=== PATIENT | female | born 1975 | race Caucasian/White ===

== ENCOUNTER 2017-04-27 19:47 | Observation (INO) | payer OTHER ==
[~2017-04-27] VITALS: Ht 165.1 cm; Wt 77.0 kg
[2017-04-27 19:54] VITALS: BP 143/90; PULSE 86; RESP 16; TEMP 98.7; O2SAT 98
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
[2017-04-27 20:13] LABS: AUTOMATED NEUTROPHIL # 13.4 TH/MM3 (1.8-7.7); BASOPHIL # 0.1 TH/MM3 (0-0.2); BASOPHIL % 0.6 % (0.0-2.0); EOSINOPHIL % 0.3 % (0.0-4.0); HEMATOCRIT 39.8 % (35.0-46.0); HEMO FLAGS DIFF FINAL; LYMPH % 13.5 % (9.0-44.0); LYMPHOCYTE # 2.2 TH/MM3 (1.0-4.8); MEAN CELL VOLUME 88.4 FL (80.0-100.0); MEAN CORPUSCULAR HEMOGLOBIN 29.2 PG (27.0-34.0); MEAN CORPUSCULAR HGB CONC 33.1 % (32.0-36.0); MONO % 4.4 % (0.0-8.0); NEUT % 81.2 % (16.0-70.0); PLATELET COUNT 334 TH/MM3 (150-450); RED BLOOD COUNT 4.51 MIL/MM3 (4.00-5.30); RED CELL DISTRIBUTION WIDTH 14.1 % (11.6-17.2); WHITE BLOOD COUNT 16.6 TH/MM3 (4.0-11.0)
[2017-04-27 20:25] LABS: APTT (PATIENT) 31.7 SEC (24.3-30.1); PROTHROMBIN TIME - PATIENT 10.5 SEC (9.8-11.6)
[2017-04-27 20:28] VITALS: RESP 16; O2SAT 97
[2017-04-27 20:33] LABS: BLOOD, URINE NEG (NEG); COMMENT (UR) CATH-CULT NOT IND; CULTURE IF INDICATED CATH CULTURE NOT IND; GLUCOSE,URINE NEG (NEG); HYALINE CAST, URINE 1 /lpf (RARE); KETONE, URINE 40 mg/dL (NEG); MUCUS URINE FEW /lpf (OCC); NITRITE,URINE NEG (NEG); PH, URINE 6.5 (5.0-8.5); SQUAMOUS EPITHELIAL CELL URINE <1 /hpf (0-5); TRANSITIONAL EPI CELLS, URINE <1 /hpf; URINE COLOR YELLOW (YELLW/STRAW)
[2017-04-27 20:45] LABS: ANION GAP 12 MEQ/L (5-15); AST (GOT) 16 U/L (15-37); BICARBONATE 20.8 MEQ/L (21.0-32.0); BLOOD UREA NITROGEN 19 MG/DL (7-18); CHLORIDE 103 MEQ/L (98-107); GLOMERULAR FILTRATION RATE 79 ML/MIN (>89); SODIUM (NA) 136 MEQ/L (136-145)
[2017-04-27 20:46] LABS: ALCOHOL LESS THAN 3 MG/DL (0-5); ALT (GPT) 21 U/L (10-53)
[2017-04-27 20:50] LABS: ALKALINE PHOSPHATASE 97 U/L (45-117); CREATINE KINASE 344 U/L (26-192); TOTAL BILIRUBIN ADULT 1.3 MG/DL (0.2-1.0)
[2017-04-27 20:58] VITALS: BP 124/74; PULSE 73; RESP 17; O2SAT 98
[2017-04-27 21:02] LABS: CKMB 5.5 NG/ML (0.5-3.6)
--- NOTE | 2017-04-27 21:03 | RADRPT ---
EXAM DATE/TIME: 04/27/2017 20:25 [facility] COMPARISON: No previous studies available for comparison. INDICATIONS : Shortness of breath. MEDICAL HISTORY : None. SURGICAL HISTORY : None. ENCOUNTER: Initial ACUITY: 1 day PAIN SCORE: 0/10 LOCATION: Bilateral chest FINDINGS: A single view of the chest demonstrates the lungs to be symmetrically aerated without evidence of mas s, infiltrate or effusion. Bibasilar atelectasis. The cardiomediastinal contours are unremarkable. O sseous structures are intact. CONCLUSION: 1. Basilar atelectasis. No effusion. No pneumothorax. Yusef Gibbons MD on April 27, 2017 at 21:00 Board Certified Radiologist. This report was verified electronically.
[2017-04-27 21:06] LABS: ACETAMINOPHEN LESS THAN 2.0 MCG/ML (10.0-30.0)
[2017-04-27] MEDS ORDERED: POTASSIUM CHLOR 20 MEQ PREMIX 100 ML IV ONE (21:30)
[2017-04-27] MEDS ORDERED: VANCOMYCIN INJ 1,000 MG in SODIUM CHLOR 0.9% 250 ML INJ 250 ML IV ONE (21:30)
[2017-04-27] MEDS ORDERED: SODIUM CHLOR 0.9% 1000 ML INJ 1,000 ML IV ONE (21:30)
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
[2017-04-27 22:49] VITALS: BP 126/75; PULSE 75; RESP 16; TEMP 98.2; O2SAT 99
[2017-04-27] MEDS ORDERED: SODIUM CHLOR 0.9% 1000 ML INJ 1,000 ML IV SCH (23:22)
[2017-04-27] MEDS ORDERED: SENNOSIDES 8.6 MG TAB PO PRN (23:30)
[2017-04-27] MEDS ORDERED: Vancomycin Consult Pharmacy 1 EA OTHER SCH (23:30)
[2017-04-27] MEDS ORDERED: MAGNESIUM HYDROXIDE SUSP 30 ML CUP PO PRN (23:30)
[2017-04-27] MEDS ORDERED: ACETAMINOPHEN 325 MG TAB PO PRN (23:30)
[2017-04-27] MEDS ORDERED: ONDANSETRON HCL 4 MG/2 ML VIAL IVP PRN (23:30)
[2017-04-27] MEDS ORDERED: SODIUM CHLORIDE 0.9% FLUSH 10 ML FLUSH IV FLUSH PRN (23:30)
[2017-04-27] MEDS ORDERED: NALOXONE HCL 0.4 MG/ML AMP IV PRN (23:30)
[2017-04-27] MEDS ORDERED: VANCOMYCIN INJ 1,000 MG in SODIUM CHLOR 0.9% 250 ML INJ 250 ML IV SCH (23:30)
[2017-04-27] MEDS ORDERED: BISACODYL 10 MG SUPP RECTAL PRN (23:30)
[2017-04-27] MEDS ORDERED: LACTULOSE SYRUP 20 GM/30 ML CUP PO PRN (23:30)
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
[2017-04-27] MEDS: ENOXAPARIN SODIUM 40 MG/0.4 ML SYRINGE SQ SCH (23:40)
[2017-04-27 23:42] LABS: SEMEN WET PREP WBC 0-2 /HPF; WET PREP SPERM NONE SEEN /HPF
[2017-04-27] MEDS: PIPERACIL-TAZO 4.5 GM PREMIX 100 ML IV SCH (23:42)
[2017-04-28] VITALS (9 sets, daily range): BP systolic 116–145; BP diastolic 67–87; PULSE 58–69; RESP 16–20; TEMP 97.7–98.5; O2SAT 96–100
--- NOTE | 2017-04-28 00:41 | RADRPT ---
EXAM DATE/TIME: 04/28/2017 00:03 [facility] COMPARISON: No previous studies available for comparison. INDICATIONS : Distention. MEDICAL HISTORY : None. SURGICAL HISTORY : None. ENCOUNTER: Initial ACUITY: 1 day PAIN SCORE: 0/10 LOCATION: Bilateral abdomen FINDINGS: Air is seen in multiple loops of nondistended small bowel in the lower abdomen. Air and stool is note d in the colon. No gross free air or pneumatosis. No abnormal calcifications. Osseous structures appe ar intact. CONCLUSION: 1. Nonobstructive bowel gas pattern. Michael Driver MD on April 28, 2017 at 0:39 Board Certified Radiologist. This report was verified electronically.
[2017-04-28 01:17] LABS: CHLAMYDIA PCR NOT DETECTED (NOT DETECT); NEISSERIA PCR NOT DETECTED (NOT DETECT)
[2017-04-28] MEDS: CLOTRIMAZOLE 1% CREAM 15 GM TOPICAL SCH ×3 (02:26→20:31)
[2017-04-28] MEDS: NS + KCL 40 MEQ INJ 1,000 ML IV SCH ×3 (04:18→22:53)
[2017-04-28] MEDS: PIPERACIL-TAZO 4.5 GM PREMIX 100 ML IV SCH (06:35)
[2017-04-28 08:53] LABS: AUTOMATED NEUTROPHIL # 10.3 TH/MM3 (1.8-7.7); BASOPHIL # 0.1 TH/MM3 (0-0.2); BASOPHIL % 0.4 % (0.0-2.0); EOSINOPHIL # 0.2 TH/MM3 (0-0.4); EOSINOPHIL % 1.2 % (0.0-4.0); HEMATOCRIT 38.6 % (35.0-46.0); HEMO FLAGS DIFF FINAL; LYMPH % 20.4 % (9.0-44.0); LYMPHOCYTE # 2.8 TH/MM3 (1.0-4.8); MEAN CELL VOLUME 90.6 FL (80.0-100.0); MEAN CORPUSCULAR HEMOGLOBIN 29.8 PG (27.0-34.0); MEAN CORPUSCULAR HGB CONC 32.9 % (32.0-36.0); MONO % 3.4 % (0.0-8.0); NEUT % 74.6 % (16.0-70.0); PLATELET COUNT 303 TH/MM3 (150-450); RED BLOOD COUNT 4.26 MIL/MM3 (4.00-5.30); RED CELL DISTRIBUTION WIDTH 14.2 % (11.6-17.2); WHITE BLOOD COUNT 13.8 TH/MM3 (4.0-11.0)
[2017-04-28] MEDS: SODIUM CHLORIDE 0.9% FLUSH 10 ML FLUSH IV FLUSH SCH ×2 (09:00→20:31)
[2017-04-28 09:07] LABS: BICARBONATE 19.4 MEQ/L (21.0-32.0); MAGNESIUM 2.3 MG/DL (1.5-2.5); POTASSIUM 3.6 MEQ/L (3.5-5.1)
[2017-04-28] MEDS ORDERED: VANCOMYCIN INJ 1,500 MG in SODIUM CHLORID 0.9% 500 ML INJ 500 ML IV SCH (10:00)
[2017-04-28] MEDS: metroNIDAZOLE 500 MG TAB PO SCH ×2 (10:15→20:31)
[2017-04-28] MEDS: DOCUSATE SODIUM 50 MG/SENNA 8.6 MG TAB PO SCH ×2 (10:15→20:31)
--- NOTE | 2017-04-28 12:48 | PD.PSY.CON ---
Provisional Diagnosis Admission Date Apr 27, 2017 at 22:48 [place] I. Unspecified psychosis [place] II. Deferred [place] III. Unknown History of Present Illness Service Psychiatry Consult Requested By Reason for Consult Psychotic behavior Primary Care Physician Unknown HPI The patient is a 41 year old woman, no social and psychiatric circumstances and history, no medical history, From ED provider note: "Patient brought in via EMS after [place] the [place] [address] [place] [address] Patient was almost hit by several cars when a police stenographer approached her and asked her what she was doing. The patient asked "why are you stopping me?" And reportedly that the last thing she said. After that patient reportedly zoned out with a blank stare and stopped verbalizing. Patient still responds to painful stimuli. There was no ID found on her and the patient came in to the facility as a Leiva."Per nurse report, she does follow certain commands. During my interview, she does seem to understand some of my questions and nod or shake her head to communicate. On psychiatric evaluation the patient is non-cooperative, selectively mute, she seems to be internally preoccupied doesn't answer any question. Due to the level of concern, patient was walking in the highway, has been acting very bizarre, we suspected that the patient is acutely psychotic. Past Family Social History Coded Allergies: No Allergy Information Available (Verified Allergy, Unknown, 04/27/17) Current Medications Medications (Trade) Dose Ordered Sig/Celeste Route Start Time Stop Time Status Last Admin (NS Flush) 2 ml UNSCH PRN IV FLUSH 04/27/17 23:30 (NS Flush) 2 ml BID IV FLUSH 04/28/17 09:00 (Tylenol) 650 mg Q4H PRN PO 04/27/17 23:30 (Zofran Inj) 4 mg Q6H PRN IVP 04/27/17 23:30 (Lovenox Inj) 40 mg Q24H SQ 04/28/17 00:00 04/27/17 23:40 (Narcan Inj) 0.4 mg UNSCH PRN IV 04/27/17 23:30 (Benita-Colace) 1 tab BID PO 04/28/17 09:00 04/28/17 10:15 (Milk Of Magnesia Liq) 30 ml Q12H PRN PO 04/27/17 23:30 (Senokot) 17.2 mg Q12H PRN PO 04/27/17 23:30 (Dulcolax Supp) 10 mg DAILY PRN RECTAL 04/27/17 23:30 (Lactulose Liq) 30 ml DAILY PRN PO 04/27/17 23:30 (Lotrimin 1% Cream) 1 applic Q12HR TOPICAL 04/27/17 23:45 04/28/17 10:15 (Flagyl) 500 mg BID PO 04/28/17 09:00 04/28/17 10:15 (Flagyl 0.75% Vag Gel) 1 appl HS VAGINAL 04/28/17 21:00 Future Hold Potassium Chloride/Sodium Chloride 1,000 ml @ 117 mls/hr Q8H33M IV 04/28/17 03:00 04/28/17 04:18 Physical Exam Vital Signs Vital Signs Date Time Temp Pulse Resp B/P (MAP) Pulse Ox O2 Delivery O2 Flow Rate FiO2 04/28/17 07:29 97 21 04/28/17 07:21 98.0 58 16 122/76 (91) 04/27/17 22:49 Room Air I/O 04/28/17 04/28/17 04/28/17 07:59 15:59 23:59 Intake Total 340 ml Balance 340 ml Lab Results Test 04/27/17 20:05 04/27/17 20:30 04/27/17 23:15 04/28/17 07:43 White Blood Count 16.6 TH/MM3 13.8 TH/MM3 Red Blood Count 4.51 MIL/MM3 4.26 MIL/MM3 Hemoglobin 13.2 GM/DL 12.7 GM/DL Hematocrit 39.8 % 38.6 % Mean Corpuscular Volume 88.4 FL 90.6 FL Mean Corpuscular Hemoglobin 29.2 PG 29.8 PG Mean Corpuscular Hemoglobin Concent 33.1 % 32.9 % Red Cell Distribution Width 14.1 % 14.2 % Platelet Count 334 TH/MM3 303 TH/MM3 Mean Platelet Volume 8.3 FL 9.3 FL Neutrophils (%) (Auto) 81.2 % 74.6 % Lymphocytes (%) (Auto) 13.5 % 20.4 % Monocytes (%) (Auto) 4.4 % 3.4 % Eosinophils (%) (Auto) 0.3 % 1.2 % Basophils (%) (Auto) 0.6 % 0.4 % Neutrophils # (Auto) 13.4 TH/MM3 10.3 TH/MM3 Lymphocytes # (Auto) 2.2 TH/MM3 2.8 TH/MM3 Monocytes # (Auto) 0.7 TH/MM3 0.5 TH/MM3 Eosinophils # (Auto) 0.0 TH/MM3 0.2 TH/MM3 Basophils # (Auto) 0.1 TH/MM3 0.1 TH/MM3 CBC Comment DIFF FINAL DIFF FINAL Differential Comment Prothrombin Time 10.5 SEC Prothromb Time International Ratio 1.0 RATIO Activated Partial Thromboplast Time 31.7 SEC Urine Color YELLOW Urine Turbidity CLEAR Urine pH 6.5 Urine Specific [place] 1.025 Urine Protein 100 mg/dL Urine Glucose (UA) NEG mg/dL Urine Ketones 40 mg/dL Urine Occult Blood NEG Urine Nitrite NEG Urine Bilirubin NEG Urine Urobilinogen 2.0 MG/DL Urine Leukocyte Esterase NEG Urine RBC 3 /hpf Urine WBC 2 /hpf Urine Squamous Epithelial Cells <1 /hpf Urine Transitional Epithelial Cells <1 /hpf Urine Hyaline Casts 1 /lpf Urine Mucus FEW /lpf Microscopic Urinalysis Comment CATH-CULT NOT IND Blood Urea Nitrogen 19 MG/DL 13 MG/DL Creatinine 0.65 MG/DL 0.78 MG/DL Random Glucose 117 MG/DL 178 MG/DL Total Protein 7.5 GM/DL Albumin 4.2 GM/DL Calcium Level 8.3 MG/DL 8.1 MG/DL Alkaline Phosphatase 97 U/L Aspartate Amino Transf (AST/SGOT) 16 U/L Alanine Aminotransferase (ALT/SGPT) 21 U/L Total Bilirubin 1.3 MG/DL Sodium Level 136 MEQ/L 137 MEQ/L Potassium Level 3.0 MEQ/L 3.6 MEQ/L Chloride Level 103 MEQ/L 108 MEQ/L Carbon Dioxide Level 20.8 MEQ/L 19.4 MEQ/L Anion Gap 12 MEQ/L 10 MEQ/L Estimat Glomerular Filtration Rate 79 ML/MIN 82 ML/MIN Total Creatine Kinase 344 U/L Creatine Kinase MB 5.5 NG/ML Creatine Kinase MB % 1.6 % Troponin I LESS THAN 0.02 NG/ML Urine Opiates Screen NEG Acetaminophen Level LESS THAN 2.0 MCG/ML Urine Barbiturates Screen NEG Urine Amphetamines Screen NEG Urine Benzodiazepines Screen NEG Urine Cocaine Screen NEG Urine Cannabinoids Screen NEG Ethyl Alcohol Level LESS THAN 3 MG/DL Lactic Acid Level 1.0 mmol/L Salicylates Level LESS THAN 1.7 MG/DL Semen WBC 0-2 /HPF Post Vasectomy Sperm Presence NONE SEEN /HPF Clue Cells (Wet Prep) PRESENT Vaginal Trichomonas (Wet Prep) NONE SEEN Vaginal Yeast (Wet Prep) NONE SEEN Chlamydia trachomatis DNA (PCR) NOT DETECTED Neisseria gonorrhoeae DNA (PCR) NOT DETECTED Magnesium Level 2.3 MG/DL Date/Time Source Procedure Growth Status 04/27/17 20:30 Blood Peripheral Aerobic Blood Culture - Preliminary NO GROWTH IN 1 DAY Resulted 04/27/17 20:30 Blood Peripheral Anaerobic Blood Culture - Preliminary NO GROWTH IN 1 DAY Resulted 04/27/17 23:15 Fluid Other Gram Stain - Final Resulted 04/27/17 23:15 Fluid Other Body Fluid Culture Pending Resulted 04/27/17 23:15 Other MIGDALIA Preparation - Final Complete Assessment & Plan Problem List: (1) Unspecified psychosis ICD Codes: F29 - Unspecified psychosis not due to a substance or known physiological condition Assessment & Plan: On Psychiatric evaluation patient is selectively mute, oppositional, but seems to be internally stimulated. First time at [facility], unknown social circumstances, unknown previous psychiatric history. Patient [place], she has been no talking in the ER, as per ER team, irrational and disorganized. Utox is negative. Acute psychosis is highly suspected, could potentially be a danger to self and others, patient will be Barber acted and admitted in psychiatry for stabilization and safety. Transfer to psychiatry was medically clear. If for daughter medical care is needed, transfer to med psych. We'll start olanzapine 5 mgs twice a day for psychosis. Olanzapine 10 mg IM every 8 hours when necessary aggressive behavior and agitation. Case discussed with primary medical team. Assessment & Plan Estimated LOS: Evan Noel MD Apr 28, 2017 12:48
--- NOTE | 2017-04-28 13:42 | EKG ---
Date Performed: 04/27/2017 Time Performed: 20:25:17 PTAGE: 89 years EKG: Sinus rhythm POSSIBLE LEFT ATRIAL ENLARGEMENT BORDERLINE RIGHT AXIS DEVIATION NONSPECIFIC T-WAVE ABNORMALITY BORD MILES ECG NO PREVIOUS TRACING DOCTOR: Sen Chan Interpretating Date/Time 04/28/2017 13:39:01
--- NOTE | 2017-04-28 18:14 | HHI.FPPN ---
Subjective Subjective patient seen and examined with the resident team this morning. case reviewed and discussed please refer to resident H&P for further details regarding hpi, ros, pmh, psh, sochx and fh in summary,patient is a 41yoF with unknown hx brought into ED as a Leiva after walking in road she is seen in her hospital bed selectively mute. patient kali acted at that time due to concern for self harm [facility] Objective Objective Last Impressions Head CT 04/27/171958 Signed Impressions: Service Date/Time: Thursday, April 27, 2017 20:41 - CONCLUSION: 1. No acute intracranial abnormalities. Opacification of the left maxillary sinus. Yusef Gibbons MD Chest X-Ray 04/27/171958 Signed Impressions: Service Date/Time: Thursday, April 27, 2017 20:25 - CONCLUSION: 1. Basilar atelectasis. No effusion. No pneumothorax. Yusef Gibbons MD Abdomen X-Ray 04/27/17 0000 Signed Impressions: Service Date/Time: Friday, April 28, 2017 00:03 - CONCLUSION: 1. Nonobstructive bowel gas pattern. Michael Driver MD Laboratory Tests - Abnormals Test 04/27/17 20:05 04/27/17 20:30 04/27/17 23:15 04/28/17 07:43 White Blood Count 16.6 TH/MM3 13.8 TH/MM3 Neutrophils (%) (Auto) 81.2 % 74.6 % Neutrophils # (Auto) 13.4 TH/MM3 10.3 TH/MM3 Activated Partial Thromboplast Time 31.7 SEC Urine Protein 100 mg/dL Urine Ketones 40 mg/dL Urine Mucus FEW /lpf Blood Urea Nitrogen 19 MG/DL Random Glucose 117 MG/DL 178 MG/DL Calcium Level 8.3 MG/DL 8.1 MG/DL Total Bilirubin 1.3 MG/DL Potassium Level 3.0 MEQ/L Carbon Dioxide Level 20.8 MEQ/L 19.4 MEQ/L Estimat Glomerular Filtration Rate 79 ML/MIN 82 ML/MIN Total Creatine Kinase 344 U/L Creatine Kinase MB 5.5 NG/ML Troponin I LESS THAN 0.02 NG/ML Acetaminophen Level LESS THAN 2.0 MCG/ML Salicylates Level LESS THAN 1.7 MG/DL Clue Cells (Wet Prep) PRESENT Chloride Level 108 MEQ/L Thyroid Stimulating Hormone 3rd Gen 85.500 uIU/ML Vital Signs 04/27/17 04/27/17 04/27/17 04/27/17 19:54 20:28 20:58 22:49 Temp 98.7 98.2 Pulse 86 73 75 Resp 16 16 17 16 B/P (MAP) 143/90 (107) 124/74 (91) 126/75 (92) Pulse Ox 98 97 98 99 O2 Delivery Nasal Cannula Room Air Room Air 04/28/17 04/28/17 04/28/17 04/28/17 02:21 04:49 05:59 07:21 Temp 97.7 97.8 98.0 Pulse 61 64 58 Resp 20 16 16 B/P (MAP) 145/85 (105) 136/87 (103) 122/76 (91) Pulse Ox 99 99 100 FiO2 21 04/28/17 04/28/17 04/28/17 07:29 13:44 15:49 Temp 98.5 98.5 Pulse 69 63 Resp 16 16 B/P (MAP) 120/72 (88) 116/67 (83) Pulse Ox 97 98 98 FiO2 21 INTAKE & OUTPUT 04/29/17 07:00 Intake Total 1000 ml Balance 1000 ml Physical exam GENERAL: wdwn female SKIN: Warm and dry. HEAD: Normocephalic. EYES: No scleral icterus. No injection or drainage. NECK: Supple, trachea midline. No JVD or lymphadenopathy. CARDIOVASCULAR: Regular rate and rhythm without murmurs, gallops, or rubs. RESPIRATORY: Breath sounds equal bilaterally. No accessory muscle use. GASTROINTESTINAL: Abdomen soft, non-tender, nondistended. MUSCULOSKELETAL: No cyanosis, or edema. BACK: Nontender without obvious deformity. No CVA tenderness. neuro: awake and alert. selectively mute. maew. cn grossly intact. follows commands except speech Assessment Assessment 41yoF with: psychosis selective mutism leukocytosis bacterial vaginosis bass act hypokalemia rhabdomyolysis hyperglycemia PLAN PLAN check tsh psych has been consulted, appreciate recs bass act sitter trend cbc and ck ivf adat patient seen and examined case reviewed and discussed agree with plan of care as discussed with me and documented in the resident note Jaclyn Aguilar MD Apr 28, 2017 18:14
[2017-04-28 19:38] LABS: FREE T3 0.79 PG/ML (2.18-3.98); FREE T4 0.36 NG/DL (0.76-1.46)
[2017-04-28] MEDS ORDERED: metroNIDAZOLE 0.75% VAG GEL 70 GM TUBE VAGINAL SCH (21:00)
[2017-04-29 00:06] VITALS: BP 124/82; PULSE 60; RESP 20; TEMP 97.6; O2SAT 97
[2017-04-29] MEDS: ENOXAPARIN SODIUM 40 MG/0.4 ML SYRINGE SQ SCH (00:09)
[2017-04-29 04:44] VITALS: BP 126/82; PULSE 63; RESP 16; TEMP 98.1; O2SAT 97
[2017-04-29 07:29] VITALS: BP 125/87; PULSE 61; RESP 16; TEMP 98.3; O2SAT 98
[2017-04-29] MEDS: SODIUM CHLORIDE 0.9% FLUSH 10 ML FLUSH IV FLUSH SCH ×3 (09:00→21:08)
[2017-04-29] MEDS: DOCUSATE SODIUM 50 MG/SENNA 8.6 MG TAB PO SCH ×2 (09:24→21:08)
[2017-04-29] MEDS: metroNIDAZOLE 500 MG TAB PO SCH ×2 (09:24→21:08)
[2017-04-29] MEDS: CLOTRIMAZOLE 1% CREAM 15 GM TOPICAL SCH ×2 (09:24→21:09)
[2017-04-29] MEDS ORDERED: LEVOTHYROXINE SODIUM 100 MCG VIAL IV PUSH ONE (10:00)
[2017-04-29] MEDS: NS + KCL 40 MEQ INJ 1,000 ML IV SCH ×2 (10:36→13:12)
[2017-04-29 12:00] VITALS: BP 144/89; PULSE 73; RESP 18; TEMP 98; O2SAT 99
[2017-04-29 12:06] LABS: AUTOMATED NEUTROPHIL # 5.2 TH/MM3 (1.8-7.7); BASOPHIL # 0.1 TH/MM3 (0-0.2); BASOPHIL % 0.8 % (0.0-2.0); EOSINOPHIL # 0.1 TH/MM3 (0-0.4); HEMATOCRIT 42.9 % (35.0-46.0); HEMO FLAGS DIFF FINAL; LYMPH % 29.3 % (9.0-44.0); LYMPHOCYTE # 2.4 TH/MM3 (1.0-4.8); MEAN CELL VOLUME 89.8 FL (80.0-100.0); MEAN CORPUSCULAR HEMOGLOBIN 30.1 PG (27.0-34.0); MEAN CORPUSCULAR HGB CONC 33.5 % (32.0-36.0); MONO % 5.5 % (0.0-8.0); NEUT % 63.4 % (16.0-70.0); PLATELET COUNT 325 TH/MM3 (150-450); RED BLOOD COUNT 4.78 MIL/MM3 (4.00-5.30); RED CELL DISTRIBUTION WIDTH 14.1 % (11.6-17.2); WHITE BLOOD COUNT 8.2 TH/MM3 (4.0-11.0)
[2017-04-29 12:46] LABS: POTASSIUM 4.1 MEQ/L (3.5-5.1)
[2017-04-29] MEDS: OLANZapine 5 MG TAB PO SCH ×2 (14:23→21:08)
[2017-04-29 16:02] VITALS: BP 129/82; PULSE 78; RESP 18; TEMP 98.6; O2SAT 97
--- NOTE | 2017-04-29 16:14 | HHI.FPPN ---
Subjective Remarks Ms Dowling had no acute events overnight. AFVSS. She spoke to us this morning and was hungry. We ordered her breakfast and told her about our plan to give her levothyroxine for being acutely hypothyroid. Patient not appearing to be oppositional today. Denies chest pains, shortness of breath, nausea, vomiting, diarrhea, and DVT leg pain. (Farhad Aldana MD R1) Objective Vitals Vital Signs Date Time Temp Pulse Resp B/P (MAP) Pulse Ox O2 Delivery O2 Flow Rate FiO2 04/29/17 12:00 98.0 73 18 144/89 (107) 99 04/29/17 07:29 98.3 61 16 125/87 (100) 98 04/29/17 04:44 98.1 63 16 126/82 (97) 97 04/29/17 00:06 97.6 60 20 124/82 (96) 97 04/28/17 21:27 96 21 04/28/17 21:24 98 21 04/28/17 20:17 98.5 68 16 119/76 (90) 98 04/28/17 15:49 98.5 63 16 116/67 (83) 98 I/O 04/28/17 04/28/17 04/28/17 04/29/17 04/29/17 04/29/17 07:00 15:00 23:00 07:00 15:00 23:00 Intake Total 1690 ml 1000 ml 230 ml 1000 ml Balance 1690 ml 1000 ml 230 ml 1000 ml Intake Oral 240 ml 230 ml IV Total 1450 ml 1000 ml 1000 ml (Farhad Aldana MD R1) Result Diagram: 04/29/17 1121 04/29/17 1121 Imaging Last Impressions Head CT 04/27/171958 Signed Impressions: Service Date/Time: Thursday, April 27, 2017 20:41 - CONCLUSION: 1. No acute intracranial abnormalities. Opacification of the left maxillary sinus. Yusef Gibbons MD Chest X-Ray 04/27/171958 Signed Impressions: Service Date/Time: Thursday, April 27, 2017 20:25 - CONCLUSION: 1. Basilar atelectasis. No effusion. No pneumothorax. Yusef Gibbons MD Abdomen X-Ray 04/27/17 0000 Signed Impressions: Service Date/Time: Friday, April 28, 2017 00:03 - CONCLUSION: 1. Nonobstructive bowel gas pattern. Michael Driver MD Objective Remarks GENERAL: Well-nourished, well-developed patient less anxious and in NAD lying in bed. SKIN: Warm and dry. No lesions or rashes. HEAD: Normocephalic. Atraumatic. EOMI. MMM. No rhinorrhea. EYES: No scleral icterus. No injection or drainage. NECK: Supple, trachea midline. No lymphadenopathy. CARDIOVASCULAR: Regular rate and rhythm without murmurs, gallops, or rubs. RESPIRATORY: Breath sounds equal bilaterally. No accessory muscle use. No increased WOB. GASTROINTESTINAL: Abdomen soft, non-tender, nondistended. EXTREMITIES: No cyanosis, or edema. No calf tenderness bilaterally, no erythema. NEUROLOGICAL: Awake, alert, and oriented x 3. Non-focal. PSYCH: Appropriate affect during exam. Answered questions and was hungry asking to eat. Wanted to go back to sleep. Agreed with plan. Medications and IVs Current Medications Medications (Trade) Dose Ordered Sig/Celeste Route Start Time Stop Time Status Last Admin (NS Flush) 2 ml UNSCH PRN IV FLUSH 04/27/17 23:30 (NS Flush) 2 ml BID IV FLUSH 04/28/17 09:00 (Tylenol) 650 mg Q4H PRN PO 04/27/17 23:30 (Zofran Inj) 4 mg Q6H PRN IVP 04/27/17 23:30 (Lovenox Inj) 40 mg Q24H SQ 04/28/17 00:00 04/29/17 00:09 (Narcan Inj) 0.4 mg UNSCH PRN IV 04/27/17 23:30 (Benita-Colace) 1 tab BID PO 04/28/17 09:00 04/29/17 09:24 (Milk Of Magnesia Liq) 30 ml Q12H PRN PO 04/27/17 23:30 (Senokot) 17.2 mg Q12H PRN PO 04/27/17 23:30 (Dulcolax Supp) 10 mg DAILY PRN RECTAL 04/27/17 23:30 (Lactulose Liq) 30 ml DAILY PRN PO 04/27/17 23:30 (Lotrimin 1% Cream) 1 applic Q12HR TOPICAL 04/27/17 23:45 04/29/17 09:24 (Flagyl) 500 mg BID PO 04/28/17 09:00 04/29/17 09:24 (Flagyl 0.75% Vag Gel) 1 appl HS VAGINAL 04/28/17 21:00 Future Hold Potassium Chloride/Sodium Chloride 1,000 ml @ 117 mls/hr Q8H33M IV 04/28/17 03:00 04/29/17 10:36 (Synthroid) 88 mcg DAILY@0600 PO 04/30/17 06:00 (ZyPREXA) 5 mg Q12HR PO 04/29/17 12:15 04/29/17 14:23 (ZyPREXA) 10 mg HS PRN PO 04/29/17 21:00 (Farhad Aldana MD R1) Urinary Catheter: No (Farhad Aldana MD R1) A/P Assessment and Plan Patient arrived ED as a Ita Leiva brought in by EMS after being found in the middle of the road and being oppositional when detained by police. Pt is a 41 YO female w/acute psychosis and found to be hypothyroid with bacterial vaginosis w/leukocytosis of 16.6. Admitted for observation for AMS/psychosis and plan to transfer to med-psych w/Dr Cross in agreement for psych to manage. 04/29 - pt is more interactive today and speaking, watching TV and speaking with the nurse. (Farhad Aldana MD R1) Attending Attestation Patient seen and examined. Case reviewed and discussed Agree with plan of care as discussed with me and documented in the resident note. Thyroid bolus today, and will continue PO thyroid supplementation with synthroid. (Jaclyn Aguilar MD) Problem List: (1) Leukocytosis ICD Codes: D72.829 - Elevated white blood cell count, unspecified Status: Resolved Plan: Leukocytosis of 16.6 and neutrophilia in a patient who would provide no other history on admit. Even though afebrile with vital signs stable, with lactic acid 1.0, treated empirically with antibiotics until blood cultures, MIGDALIA returned negative given multiple possible sources of infection. -CBC wnl by 04/29 -Vancomycin 1 g IV q12h - d/c 04/28 -Zosyn 4.5 g IV q6h - d/c 04/28 -Flagyl 500 mg BID - held 04/28 -Chest x-ray read as basilar atelectasis but could also be early right lower lung pneumonia--lungs clear 04/29 -Skin exam remarkable for medial thigh scabby erythema; otherwise unremarkable -urine with no signs of infection -Head CT with opacification of the left maxillary sinus concerning for sinusitis -Vaginal discharge concerning for PID -Neg Trichomonas, GC, Chlamydia; positive BV -Monitor vital signs, ins and outs, blood glucose, pulse ox -Oxygen as needed (2) Altered mental status ICD Codes: R41.82 - Altered mental status, unspecified Status: Acute Plan: -Continue infectious workup as above -UDS, Tylenol, salicylate all negative -OB/psych drug screen pending -Head CT negative -[facility] consulted [facility] ([facility]) Vaginal discharge ICD Codes: N89.8 - Other specified noninflammatory disorders of vagina Status: Resolved Plan: Vaginal discharge sample collected and sent to lab. -Gonorrhea, chlamydia, MIGDALIA negative -Found to be positive for clue cells; otherwise negative -Metronidazole 500 mg by mouth twice a day or if by mouth was not tolerated, metronidazole 0.5% vaginal gel daily--Flagyl held 04/28 -Treatment complete (4) Hypokalemia ICD Codes: E87.6 - Hypokalemia Status: Resolved Plan: Patient presented hypokalemic with a potassium of 3.0. Given 20 mEq of KCl in ED. -Maintenance fluids with potassium -BMP qd -K+ 4.1 on 04/29--resolved (5) Eye discharge ICD Codes: H57.8 - Other specified disorders of eye and adnexa Plan: Crusted left eye and eye discharge present on exam. -Collected eye discharge, sent for fluid culture and Gram stain -Eye exam without exudate noted 04/29 (6) Tinea cruris ICD Codes: B35.6 - Tinea cruris Plan: Likely tinea cruris present on medial thighs bilaterally. Resolving -Clotrimazole 1% cream 1 application topically every 12 hours (7) Decreased bowel sounds ICD Codes: R19.15 - Other abnormal bowel sounds Plan: Decreased bowel sounds on exam. -Abdominal x-ray negative -Bowel prep: Benita-colace (8) No contraindication to deep vein thrombosis (DVT) prophylaxis ICD Codes: Z78.9 - Other specified health status Plan: -Lovenox 40 mg subcutaneous daily (9) Nutrition, metabolism, and development symptoms ICD Codes: R63.8 - Other symptoms and signs concerning food and fluid intake Plan: Fluids: d/c IVF 04/29 @ 1613 due to K+ wnl and tolerating PO/drinking water Electrolytes: Monitor and replete PRN Nutrition: Regular basic diet as tolerated (Farhad Aldana MD R1) Problem Qualifiers (1) Altered mental status: Qualified Codes: R41.82 - Altered mental status, unspecified Farhad Aldana MD R1 Apr 29, 2017 16:14 Jaclyn Aguilar MD Apr 30, 2017 08:17
[2017-04-29] MEDS ORDERED: SYNT88TA PO (17:33)
[2017-04-29] MEDS ORDERED: OLAN5TAB PO (17:33)
[2017-04-29] MEDS ORDERED: OLAN10TA PO (17:33)
[2017-04-29] MEDS ORDERED: METR-1 PO (17:33)
--- NOTE | 2017-04-29 17:34 | HHI.DCPOC ---
Discharge Care Plan Diagnosis: (1) Mutism (2) Hypothyroidism (3) Altered mental status Goals to Promote Your Health * To prevent worsening of your condition and complications * To maintain your health at the optimal level Directions to Meet Your Goals Take your medications as prescribed Follow your dietary instruction Follow activity as directed Keep your appointments as scheduled Take your immunizations and boosters as scheduled If your symptoms worsen call your PCP, if no PCP go to Urgent Care Center or Emergency Room Smoking is Dangerous to Your Health. Avoid second hand smoke Call the 24-hour hour crisis hotline for domestic abuse at Michael Gee MD, R3 Apr 29, 2017 17:34 Jaclyn Aguilar MD Apr 30, 2017 08:16
[2017-04-29 20:15] VITALS: BP 146/86; PULSE 74; RESP 18; TEMP 98.1; O2SAT 97
[2017-04-29] MEDS ORDERED: OLANZapine 10 MG TAB PO PRN (21:00)
[2017-04-30] MEDS ORDERED: LEVOTHYROXINE SODIUM 88 MCG TAB PO SCH (06:00)
[2017-04-30] MEDS ORDERED: PHARMACY ORDERED LAB ONE (09:45)
[2017-05-01 15:10] LABS: PHENCYCLIDINE URINE NEG (NEG)
[2017-05-01 15:11] LABS: BATH SALTS (MDPV) UR NEG (NEG); ECSTASY (MDMA) UR NEG (NEG); GABAPENTIN UR NEG (NEG); HEROIN (6-ACETYLMORPHINE) UR NEG (NEG); HYDROMORPHONE U NEG (NEG); K2 SPICE UR NEG (NEG); OBMETHADONE UR NEG (NEG)
== END 2017-04-30 00:10 ==
LOC: NEPC 19:47 → EDBD 22:48 → NEDA 22:48 → INTOOBSV 22:48 → NEPFCDU 04-28 01:42
PROVIDERS: ADMIT Family Medicine; ATTEND Family Medicine
DX: R41.82 Altered mental status, unspecified (principal); F94.0 Selective mutism; B35.6 Tinea cruris; R73.9 Hyperglycemia, unspecified; E03.9 Hypothyroidism, unspecified; E87.6 Hypokalemia; F23 Brief psychotic disorder; M62.82 Rhabdomyolysis; N76.0 Acute vaginitis; A74.9 Chlamydial infection, unspecified; R94.31 Abnormal electrocardiogram [ECG] [EKG]; H57.8 Other specified disorders of eye and adnexa
CPT/HCPCS: 70450; 71010; 74000; 80048; 80053; 80307; 81001; 82533; 82550; 82552; 82948; 83605; 83735; 84439; 84443; 84481; 84484; 84703; 85025; 85610; 85730; 87040; 87070; 87205; 87210; 87220; 87491; 87591; 89321; 93005; 96361; 96365; 96366; 96367; 96368; 96372; 96375; 99285; G0378; G0481; J1650; J2543; J3370; J3480; J7030; J7050; P9612

== ENCOUNTER 2017-04-30 00:10 | Inpatient (IN) | payer OTHER, MEDICARE ==
[~2017-04-30] VITALS: Ht 167.6 cm; Wt 88.2 kg
[~2017-04-30 00:10] MED LIST: METR-1 PO; OLAN10TA PO; OLAN5TAB PO; SYNT88TA PO
[2017-04-30] MEDS ORDERED: BENZTROPINE MESYLATE 2 MG/2 ML VIAL IM PRN (00:30)
[2017-04-30] MEDS ORDERED: BENZTROPINE MESYLATE 1 MG TAB PO PRN (00:30)
[2017-04-30] MEDS ORDERED: ACETAMINOPHEN 325 MG TAB PO PRN (00:30)
[2017-04-30] MEDS ORDERED: diphenhydrAMINE HCL 50 MG CAP PO PRN (00:30)
[2017-04-30] MEDS ORDERED: ALUMINUM/MAGNESIUM/SIMETH 30 ML CUP PO PRN (00:30)
[2017-04-30] MEDS ORDERED: MAGNESIUM HYDROXIDE SUSP 30 ML CUP PO PRN (00:30)
[2017-04-30 00:43] VITALS: BP 145/100; PULSE 75; RESP 18; TEMP 97.5; O2SAT 100
[2017-04-30 05:15] VITALS: BP 127/80; PULSE 64; RESP 16; TEMP 98; O2SAT 98
[2017-04-30] MEDS: LEVOTHYROXINE SODIUM 88 MCG TAB PO SCH (05:50)
[2017-04-30] MEDS: OLANZapine 5 MG TAB PO SCH ×2 (09:26→21:36)
--- NOTE | 2017-04-30 11:03 | HHI.HP ---
Provisional Diagnosis Admission Date Apr 30, 2017 at 00:10 [place] I. Unspecified psychosis, r/o chronic paranoid schizophrenia [place] II. Deferred [place] III. Hypothyroidism [place] IV. Homeless, no family support [place] V. 41 Certification of Person's Competence To Provide Express and Informed Consent I have personally examined Noni Dowling , a person being served at [facility] on, Apr 30, 2017 10:42. Express and informed consent means consent voluntarily given in writing, by a competent person, after sufficient explanation and disclosure of the subject matter involved to enable the person to make a knowing and willful decision without any element of force, fraud, deceit, duress, or other form of constraint or coercion. This person is 18 years of age or older, is not now known to be incompetent to consent to treatment with a guardian advocate, and does not have a health care surrogate or proxy currently making medical treatment decisions. I have found this person to be one of the following: [X] Competent to provide express and informed consent, as defined above, for voluntary admission to this facility and is competent to provide express and informed consent for treatment. He/she has the consistent capacity to make well reasoned, willful, and knowing decisions concerning his or her medical or mental health treatment. The person fully and consistently understands the purpose of the admission for examination/placement and is fully capable of personally exercising all rights assured under [place] Incompetent to provide express and informed consent to voluntary admission, and this is incompetent to provide express and informed consent to treatment. The person must be transferred to involuntary status and a petition for a guardian advocate filed with the Circuit Court. [] Refusing to provide express and informed consent to voluntary admission but is competent to provide express and informed consent for treatment. The person must be discharged or transferred to involuntary status. Form shall be completed within 24 hours of a person's arrival at the receiving facility and filed in the clinical record of each person: 1. Admitted on a voluntary basis 2. Permitted to provide express and informed consent to his/her own treatment 3. Allowed to transfer from involuntary to voluntary status 4. Prior to permitting a person to consent to his or her own treatment after having been previously found incompetent to consent to treatment. History of Present Illness Capacity: Has Capacity HPI 04/29/2017 The patient is a 41 year old woman, no social and psychiatric circumstances and history, no medical history, From ED provider note: "Patient brought in via EMS after [place] in the middle [place] [address] [place] [address] Patient was almost hit by several cars when a park police approached her and asked her what she was doing. The patient asked "why are you stopping me?" And reportedly that the last thing she said. After that patient reportedly zoned out with a blank stare and stopped verbalizing. Patient still responds to painful stimuli. There was no ID found on her and the patient came in to the facility as a [place]."Per nurse report, she does follow certain commands. During my interview, she does seem to understand some of my questions and nod or shake her head to communicate. On psychiatric evaluation the patient is non-cooperative, selectively mute, she seems to be internally preoccupied doesn't answer any question. Due to the level of concern, patient was walking in the highway, has been acting very bizarre, we suspected that the patient is acutely psychotic. 04/30/2017 the patient is a 41 years old [place] woman, homeless, but , poor social and family support, unemployed, with reported psychiatric history of schizophrenia, she denies previous psychiatric hospitalizations, she denies psychotropics, she denies suicidal attempts, medical history of hypothyroidism, who was brought to the hospital yesterday under [place] act because she was found by police wandering in the highway: "Patient brought in via EMS after being [place] in the middle [place] [address] [place] [address] Patient was almost hit by several cars when a park police approached her and asked her what she was doing. The patient asked "why are you stopping me?". She was seen yesterday in the ER, but she refused to talk with me. Today and psychiatric evaluation patient is found sleeping, but easily arousable. She is calm, cooperative. Patient reports that yesterday she wanted talk because she was very upset that the police brought her to the hospital. She says that all she was doing was walking in the street. Patient says that she has been living in the street for years, since she from her . She says that she has been living in denies about 3 years now. She reports distant history of schizophrenia, but denies previous psychiatric hospitalizations, denies taking medications, she doesn't remember medications taking in the past. At this moment the patient reports good mood, she describes her mood as happy, even though she has a flat affect and seems to be internally preoccupied. She denies hopelessness, she denies helplessness, she denies worthlessness, she denies anhedonia, she reports good sleep, good appetite, good level of concentration, and I suicidal and was ideation, she denies visual and auditory hallucinations. Patient is fully oriented in 3, no attention deficit, no gross cognitive impairment present. Patient denies the use of illicit drugs and alcohol. Review of Systems Constitutional: DENIES: Diaphoretic episodes, Fatigue, Fever, Weight gain, Weight loss, Chills, Dizziness, Change in appetite, Night Sweats Endocrine: DENIES: Abnorml menstrual pattern, Heat/cold intolerance, Polydipsia , Polyuria, Polyphagia Eyes: DENIES: Blurred vision, Diplopia, Eye inflammation, Eye pain, Vision loss , Photosensitivity, Double Vision Ears, nose, mouth, throat: DENIES: Tinnitus, Hearing loss, Vertigo, Nasal discharge, Oral lesions, Throat pain, Hoarseness, Ear Pain, Running Nose, Epistaxis, Sinus Pain, Toothache, Odynophagia Respiratory: DENIES: Apneas, Cough, Snoring, Wheezing, Hemoptysis, Sputum production, Shortness of breath Cardiovascular: DENIES: Chest pain, Palpitations, Syncope, Dyspnea on Exertion , PND, Lower Extremity Edema, Orthopnea, Claudication Gastrointestinal: DENIES: Abdominal pain, Black stools, Bloody stools, Constipation, Diarrhea, Nausea, Vomiting, Difficulty Swallowing, Anorexia Musculoskeletal: DENIES: Joint pain, Muscle aches, Stiffness, Joint Swelling, Back pain, Neck pain Integumentary: DENIES: Abnormal pigmentation, Pruritus, Rash, Nail changes, Breast masses, Breast skin changes, Nipple discharge Hematologic/lymphatic: DENIES: Bruising, Lymphadenopathy Immunologic/allergic: DENIES: Eczema, Urticaria Neurologic: DENIES: Abnormal gait, Headache, Localized weakness, Paresthesias, Seizures, Speech Problems, Tremor, Poor Balance Psychiatric: DENIES: Anxiety, Confusion, Mood changes, Depression, Hallucinations, Agitation, Suicidal Ideation, Homicidal Ideation, Delusions Substance Abuse History Drugs/Alcohol past 12 months She denies the use of illicit drugs and alcohol Past Family Social History Coded Allergies: No Allergy Information Available (Verified Allergy, Unknown, 04/27/17) Active Scripts Levothyroxine (Synthroid) 88 Mcg Tab, 88 MCG PO DAILY@0600, #30 TAB Prov:Michael Gee MD, R3 04/29/17 Olanzapine (Olanzapine) 10 Mg Tab, 10 MG PO HS Y for SEVERE ANXIETY OR AGITATION , #30 TAB Prov:Michael Gee MD, R3 04/29/17 Olanzapine (Olanzapine) 5 Mg Tab, 5 MG PO Q12HR, #60 TAB Prov:Michael Gee MD, R3 04/29/17 Metronidazole (Flagyl) 500 Mg Tab, 500 MG PO BID, #10 TAB Prov:Michael Gee MD, R3 04/29/17 Current Medications Medications (Trade) Dose Ordered Sig/Celeste Route Start Time Stop Time Status Last Admin (Benadryl) 50 mg HS PRN PO 04/30/17 00:30 (Milk Of Magnesia Liq) 30 ml DAILY PRN PO 04/30/17 00:30 (Mag-Al Plus Susp Liq) 30 ml Q6H PRN PO 04/30/17 00:30 (Habitrol 21 Mg Patch.24 Hr) 1 patch DAILY T-DERMAL 04/30/17 09:00 (Atarax) 50 mg Q6H PRN PO 04/30/17 00:30 (Cogentin) 1 mg Q12H PRN PO 04/30/17 00:30 (Cogentin Inj) 1 mg Q12H PRN IM 04/30/17 00:30 Miscellaneous Information 1 DAILY T-DERMAL 04/30/17 09:00 (Synthroid) 88 mcg DAILY@0600 PO 04/30/17 06:00 04/30/17 05:50 (Flagyl) 500 mg BID PO 04/30/17 09:00 (ZyPREXA) 5 mg Q12HR PO 04/30/17 09:00 04/30/17 09:26 Family History Patient denies family psychiatric history Social History Patient was born and raised in [facility], [facility], she is but , she self reported homeless at this moment, no kids, unemployed, her highest level of education is college Patient's Strengths (min. 2) Verbal communication Physical Exam no tremors, no psychomotor agitation retardation, no EPS, no stiffness, no gait disturbances, Vital Signs Vital Signs Date Time Temp Pulse Resp B/P (MAP) Pulse Ox O2 Delivery O2 Flow Rate FiO2 04/30/17 05:15 98.0 64 16 127/80 (96) 98 Lab Results Labs reviewed Mental Status Examination Appearance woman, edentulous, poor hygiene, [facility], she is calm and cooperative Speech: Unremarkable Orientation: x3 Memory: Unremarkable Thought Process: Logical Thought Content: Unremarkable Hallucination Type: None Suicidal Ideation: No Previous Suicide Attempts: No Homicidal Ideation: No Previous Homicide Attempts: No Insight: Good Affect if Inappropriate: Flat Mood: Appropriate Motor Activity: Normal gait Assessment & Plan Problem List: (1) Schizophrenia ICD Codes: F20.9 - Schizophrenia, unspecified Assessment & Plan: On Psychiatric evaluation today patient is more cooperative , calm her, able to provide significant information for psychiatric assessment. She denies symptoms of depression, anxiety, briseyda or psychosis. He denies suicidal and was ideation, she denies visual and auditory hallucinations. She reports psychiatric history of schizophrenia, but denies taking medications, denies previous hospitalizations. She does present with prominent flat affect, internal preoccupation. She does not seem to be a very reliable historian. Yesterday my evaluation she was selectively mute, oppositional and internally stimulated. Patient [place] walking [place] the highway, she has been no talking in the ER, as per ER team, irrational and disorganized. Utox is negative. Even though the patient presents more cooperative and calmer today Acute psychosis is highly suspected, could potentially be a danger to self and others. We'll continue hospitalization for close monitoring of mood and thought processes. Continue olanzapine 5 g twice a day. Patient is willing to sign voluntary admission. Extensive support, motivation and psychoeducation provided. therapeutic program worker intervention for psychosocial assessment and to coordinate a safe discharge. Assessment & Plan Estimated LOS: Evan Noel MD Apr 30, 2017 11:03
--- NOTE | 2017-04-30 17:36 | PD.CONS ---
HPI Service [facility] Hospitalists Consult Requested By Evan Blake M.D. Reason for Consult Medical management. Primary Care Physician Unknown Diagnoses: (1) Hypothyroidism History of Present Illness Written by Ulises Balderas PA-C, acting as scribe for Dr. Martha Tian on 04/30/17 at 17:27. Ms. Dowling is 41-year-old, [place] with medical history of hypothyroidism. Per psychiatry, she has a distant history of schizophrenia. Per the medical record, Ms. Dowling was found by police on [address] walking in traffic. It was reported that she was almost hit by several vehicles. Police subsequently brought her to [facility] for evaluation. The hospitalist team was consulted to manage her medical issue. Upon interview, Ms. Dowling was encountered standing in her hospital room with arms crossed. She responded to questions in short sentences most often one- word answers. She endorsed having hypothyroidism but was unaware of her medication and reported having not taken any medication for a long period of time. She also stated feeling tired and "sick" for approximately 2 months. She otherwise denied having any health issues at present. She denied fever, cough, shortness of breath, chest/abdominal pain, difficulty with urine or stool. Last menstrual period was reported to have been 2 weeks ago. A 10 point review of systems was completed and, except as noted above, is negative. Review of Systems Except as stated in HPI: all other systems reviewed are Neg Past Family Social History Allergies: Coded Allergies: acetaminophen (Verified Allergy, Severe, 05/04/17) aspirin (Verified Allergy, Severe, 05/04/17) lorazepam (Verified Allergy, Severe, 05/04/17) No Allergy Information Available (Verified Allergy, Unknown, 04/27/17) Past Medical History Hypothyroidism Schizophrenia Past Surgical History Patient denied having any surgeries. Reported Medications Reported Meds & Active Scripts Active Synthroid (Levothyroxine Sodium) 88 Mcg Tab 88 Mcg PO DAILY@0600 Olanzapine 10 Mg Tab 10 Mg PO HS PRN Olanzapine 5 Mg Tab 5 Mg PO Q12HR Flagyl (Metronidazole) 500 Mg Tab 500 Mg PO BID Active Ordered Medications Current Medications Medications (Trade) Dose Ordered Sig/Celeste Route Start Time Stop Time Status Last Admin (Benadryl) 50 mg HS PRN PO 04/30/17 00:30 (Milk Of Magnesia Liq) 30 ml DAILY PRN PO 04/30/17 00:30 (Mag-Al Plus Susp Liq) 30 ml Q6H PRN PO 04/30/17 00:30 (Habitrol 21 Mg Patch.24 Hr) 1 patch DAILY T-DERMAL 04/30/17 09:00 (Atarax) 50 mg Q6H PRN PO 04/30/17 00:30 (Cogentin) 1 mg Q12H PRN PO 04/30/17 00:30 (Cogentin Inj) 1 mg Q12H PRN IM 04/30/17 00:30 Miscellaneous Information 1 DAILY T-DERMAL 04/30/17 09:00 (Synthroid) 88 mcg DAILY@0600 PO 04/30/17 06:00 04/30/17 05:50 (Flagyl) 500 mg BID PO 04/30/17 09:00 (ZyPREXA) 5 mg Q12HR PO 04/30/17 09:00 04/30/17 09:26 Family History Patient denied family having any health issues. Social History Patient denied nicotine use. Illicit and recreational drug usage was denied. Alcohol use was denied. Physical Exam Vital Signs Vital Signs Date Time Temp Pulse Resp B/P (MAP) Pulse Ox O2 Delivery O2 Flow Rate FiO2 04/30/17 05:15 98.0 64 16 127/80 (96) 98 04/30/17 00:43 97.5 75 18 145/100 (115) 100 Physical Exam GENERAL: This is a well-nourished, well-developed patient, in no apparent distress. SKIN: No rashes, ecchymoses or lesions. Cool and dry. HEAD: Atraumatic. Normocephalic. EYES: Pupils equal round and reactive. Extraocular motions intact. No scleral icterus. No injection or drainage. ENT: Nose without bleeding or purulent drainage. Airway patent. NECK: Trachea midline. No lymphadenopathy. Supple and nontender. CARDIOVASCULAR: Regular rate and rhythm without murmurs, gallops, or rubs. RESPIRATORY: Clear to auscultation. Breath sounds equal bilaterally. No wheezes , rales, or rhonchi. GASTROINTESTINAL: Abdomen soft, non-tender, nondistended. No hepato-splenomegaly , or guarding. MUSCULOSKELETAL: Extremities without clubbing, cyanosis, or edema. No joint tenderness, effusion, or edema noted. NEUROLOGICAL: Awake and alert. Cranial nerves II through XII grossly intact. Motor and sensory grossly within normal limits. Five out of 5 muscle strength in all muscle groups. Speech was clear and fluent. Assessment and Plan Problem List: (1) Schizophrenia ICD Code: F20.9 - Schizophrenia, unspecified (2) Hypothyroidism ICD Code: E03.9 - Hypothyroidism, unspecified Assessment and Plan Ms. Dowling is 41-year-old, [place] with medical history of hypothyroidism. Per psychiatry, she has a distant history of schizophrenia. Per the medical record, Ms. Dowling was found by police on walking in traffic. It was reported that she was almost hit by several vehicles. Police subsequently brought her to [facility] for evaluation. The hospitalist team was consulted to manage her medical issue. Schizophrenia -As per psychiatry. Hypothyroidism. TSH In the 80s -Suspect noncompliance -Synthroid 88 micrograms daily -Check levels in 6-8 weeks may be done on an outpatient basis with PCP Discussed Condition With Patient This note was transcribed by scribe [Ulises Balderas PA-C]. I, Dr. John Tian personally performed the history, physical exam, and medical decision making; and confirmed the accuracy of the information in the transcribed note. Authenticated by Dr. John Tian on 05/05/17 at 09:32. Problem Qualifiers (1) Hypothyroidism: Qualified Codes: E03.9 - Hypothyroidism, unspecified Ulises Balderas Jr. Apr 30, 2017 17:36 John Tian MD May 05, 2017 09:32
[2017-04-30] MEDS: metroNIDAZOLE 500 MG TAB PO SCH ×2 (21:00→21:36)
[2017-04-30 21:42] VITALS: PULSE 73; RESP 17; TEMP 98.4; O2SAT 97
[2017-05-01] MEDS: LEVOTHYROXINE SODIUM 88 MCG TAB PO SCH (06:18)
[2017-05-01] MEDS: hydrOXYzine HCL 50 MG TAB PO PRN (06:18)
[2017-05-01 06:32] VITALS: BP 160/115; PULSE 100; RESP 16; TEMP 97.6; O2SAT 100
[2017-05-01 08:00] VITALS: BP 135/84
[2017-05-01] MEDS: metroNIDAZOLE 500 MG TAB PO SCH ×2 (08:57→22:19)
[2017-05-01] MEDS: OLANZapine 5 MG TAB PO SCH ×2 (08:57→21:00)
[2017-05-01] MEDS: NICOTINE 21 MG/24 HR PATCH T-DERMAL SCH (08:58)
[2017-05-01] MEDS: REMOVE OLD PATCH T-DERMAL SCH (08:58)
--- NOTE | 2017-05-01 12:54 | HHI.PYPN ---
Subjective Remarks Patient seen, case discussed with nurse and labs reviewed. Appears to exhibit thought blocking and is continuously responding to internal stimuli. Talks to herself. Review of Systems Except as stated in HPI: all other systems reviewed are Neg Objective Alert: Yes [place]: Person Mood: Anxious Affect: Restricted Memory Intact: Immediate Hallucinations: Auditory Delusions: Yes Delusion Type: Paranoid, Other Suicidal: Ideation Homicidal: Ideation (no) Insight/Judgment Poor Labs Test 05/01/17 10:57 Vitals/IOs Vital Signs Date Time Temp Pulse Resp B/P (MAP) Pulse Ox O2 Delivery O2 Flow Rate FiO2 05/01/17 08:00 135/84 (101) 05/01/17 06:32 97.6 100 16 100 Assessment & Plan Problem List: (1) Schizophrenia ICD Codes: F20.9 - Schizophrenia, unspecified Assessment & Plan Estimated LOS: days grossly psychotic and unable to care for self. Requires antipsychotic therapy. Justification for Cont. Inpt. Totally unable to care for self. Danish Ordaz MD May 01, 2017 12:54
[2017-05-01 13:13] LABS: ANION GAP 10 MEQ/L (5-15); BICARBONATE 25.1 MEQ/L (21.0-32.0); BLOOD UREA NITROGEN 8 MG/DL (7-18); CHLORIDE 99 MEQ/L (98-107); GLOMERULAR FILTRATION RATE 99 ML/MIN (>89); HDL CHOLESTEROL 43.5 MG/DL (40.0-60.0); LDL CHOLESTEROL 139 MG/DL (0-99); POTASSIUM 3.4 MEQ/L (3.5-5.1); SODIUM (NA) 134 MEQ/L (136-145)
[2017-05-01 14:55] LABS: HEMOGLOBIN A1a 1.2 %; HEMOGLOBIN A1b 1.9 %; HEMOGLOBIN Ao 84.8 %; HEMOGLOBIN LA1C 2.2 %; HEMOGLOBIN P3 3.7 %
[2017-05-01 17:57] VITALS: BP 158/97; PULSE 71; RESP 16; TEMP 98.2; O2SAT 100
[2017-05-02] MEDS: LEVOTHYROXINE SODIUM 88 MCG TAB PO SCH (05:54)
[2017-05-02] MEDS: hydrOXYzine HCL 50 MG TAB PO PRN ×2 (05:54→13:56)
[2017-05-02 06:47] VITALS: BP 130/90
[2017-05-02 07:03] VITALS: BP 130/90; PULSE 59; RESP 18; TEMP 97.6; O2SAT 100
[2017-05-02] MEDS: NICOTINE 21 MG/24 HR PATCH T-DERMAL SCH (07:27)
[2017-05-02] MEDS: REMOVE OLD PATCH T-DERMAL SCH (07:27)
[2017-05-02] MEDS: OLANZapine 5 MG TAB PO SCH ×3 (08:01→21:00)
[2017-05-02] MEDS: metroNIDAZOLE 500 MG TAB PO SCH ×2 (08:01→21:55)
--- NOTE | 2017-05-02 15:14 | HHI.PYPN ---
Subjective Remarks Patient seen, chart reviewed and case discussed with nursing. Patient continues to respond to internal stimuli. This physician plans to increase her antipsychotic medication, Zyprexa. Review of Systems Except as stated in HPI: all other systems reviewed are Neg Objective Alert: Yes [place]: Person Mood: Anxious Affect: Restricted Memory Intact: Immediate Hallucinations: Auditory Delusions: Yes Delusion Type: Paranoid, Other Suicidal: Ideation Homicidal: Ideation (no) Insight/Judgment Poor Vitals/IOs Vital Signs Date Time Temp Pulse Resp B/P (MAP) Pulse Ox O2 Delivery O2 Flow Rate FiO2 05/02/17 07:03 97.6 59 18 130/90 (103) 100 Intake and Output 05/02/17 05/02/17 05/02/17 07:59 15:59 23:59 Intake Total 360 ml 360 ml Balance 360 ml 360 ml Assessment & Plan Problem List: (1) Schizophrenia ICD Codes: F20.9 - Schizophrenia, unspecified Assessment & Plan Estimated LOS: days increasing Zyprexa to 10 mg by mouth twice a day for ongoing psychosis, thought blocking, paranoia and responding to internal stimuli. Justification for Cont. Inpt. Unable to care for self. Danish Ordaz MD May 02, 2017 15:14
[2017-05-02 17:36] VITALS: BP 157/93; PULSE 73; RESP 16; TEMP 98; O2SAT 100
[2017-05-03 06:27] VITALS: BP 139/83; PULSE 83; RESP 18; TEMP 97.4; O2SAT 99
[2017-05-03] MEDS: LEVOTHYROXINE SODIUM 88 MCG TAB PO SCH (06:37)
[2017-05-03] MEDS: NICOTINE 21 MG/24 HR PATCH T-DERMAL SCH (08:40)
[2017-05-03] MEDS: REMOVE OLD PATCH T-DERMAL SCH (08:40)
[2017-05-03] MEDS: OLANZapine 5 MG TAB PO SCH ×2 (08:40→21:00)
[2017-05-03] MEDS: metroNIDAZOLE 500 MG TAB PO SCH ×2 (08:40→21:40)
--- NOTE | 2017-05-03 11:07 | HHI.PYPN ---
Subjective Remarks Patient seen and examined with nurse in coverage. Chart reviewed. Case discussed with nursing staff reports patient remains internally stimulated and was noted to be holding her ears and having a conversation with someone who was not there. On my examination today, the patient displays delayed thought processes and thought blocking. She is electively mute and engages in interview by shaking her head yes and no. She denies any SI or HI. Denies any AVH but remains internally stimulated. Denies any side effects from medications. No physical complaints. Review of Systems ROS Limitations: Psychotic, Poor Historian Except as stated in HPI: all other systems reviewed are Neg Objective Alert: Yes [place]: Person Mood: Calm Affect: Flat Memory Intact: Comment (not assessed) Hallucinations: Auditory (appears internally preoccupied) Delusions: Yes Delusion Type: Paranoid (suspect paranoia) Suicidal: Ideation (denies SI) Homicidal: Ideation (denies HI) Insight/Judgment Poor Remarks No motor abnormalities noted Labs Labs reviewed. I note hyponatremia and hypokalemia when BMP was last checked. Vitals/IOs Vital Signs Date Time Temp Pulse Resp B/P (MAP) Pulse Ox O2 Delivery O2 Flow Rate FiO2 05/03/17 06:27 97.4 83 18 139/83 (101) 99 Intake and Output 05/03/17 05/03/17 05/04/17 08:00 16:00 00:00 Intake Total 240 ml Balance 240 ml Assessment & Plan Problem List: (1) Schizophrenia ICD Codes: F20.9 - Schizophrenia, unspecified Assessment & Plan Zyprexa was just recently titrated. Continue Zyprexa as ordered. Check a BMP. Continue to monitor on the inpatient unit. Continue other medications and care as ordered. Justification for Cont. Inpt. Impairment in reality construction Discharge Planning Per Dr. Hayden Rodriguez,Evans Buchanan MD May 03, 2017 11:07
[2017-05-03 15:18] LABS: BICARBONATE 26.5 MEQ/L (21.0-32.0); POTASSIUM 3.7 MEQ/L (3.5-5.1)
[2017-05-03] MEDS: hydrOXYzine HCL 50 MG TAB PO PRN (17:58)
[2017-05-03 18:17] VITALS: BP 144/87; PULSE 77; RESP 18; TEMP 97.9; O2SAT 95
--- NOTE | 2017-05-03 18:28 | HHI.PR ---
Subjective Remarks Followup for medical management. Pt seen and examined. She reported taking her thyroid medication "Synthroid" as directed. Pt said she will take medication upon discharge. She denied fever, cough, shortness of breath, chest/abdominal pain, difficulty with ambulation. Per RN ([place]) pt electively mute. RN stated no acute issues reported overnight or since start of shift. Objective Vitals Vital Signs Date Time Temp Pulse Resp B/P (MAP) Pulse Ox O2 Delivery O2 Flow Rate FiO2 05/03/17 18:17 97.9 77 18 144/87 (106) 95 05/03/17 06:27 97.4 83 18 139/83 (101) 99 I/O 05/02/17 05/02/17 05/02/17 05/03/17 05/03/17 05/03/17 07:00 15:00 23:00 07:00 15:00 23:00 Intake Total 720 ml 240 ml 480 ml 360 ml Balance 720 ml 240 ml 480 ml 360 ml Intake Oral 720 ml 240 ml 480 ml 360 ml Result Diagram: 05/03/17 6859 Objective Remarks GENERAL: Pt encountered walking in hallway, NAD SKIN: Warm and dry. HEAD: Normocephalic. EYES: No scleral icterus. No injection or drainage. NECK: Supple, trachea midline. No JVD or lymphadenopathy. CARDIOVASCULAR: Regular rate and rhythm without murmurs, gallops, or rubs. RESPIRATORY: Breath sounds equal bilaterally. No accessory muscle use. GASTROINTESTINAL: Declined to be evaluated. MUSCULOSKELETAL: No cyanosis, or edema. PSYCHIATRIC: Flat affect, insight and judgment not able to be determined due to lack of pt comments. Pt generally cooperative. Medications and IVs Current Medications Medications (Trade) Dose Ordered Sig/[place] Route Start Time Stop Time Status Last Admin (Benadryl) 50 mg HS PRN PO 04/30/17 00:30 (Milk Of Magnesia Liq) 30 ml DAILY PRN PO 04/30/17 00:30 (Mag-Al Plus Susp Liq) 30 ml Q6H PRN PO 04/30/17 00:30 (Habitrol 21 Mg Patch.24 Hr) 1 patch DAILY T-DERMAL 04/30/17 09:00 (Atarax) 50 mg Q6H PRN PO 04/30/17 00:30 05/03/17 17:58 (Cogentin) 1 mg Q12H PRN PO 04/30/17 00:30 (Cogentin Inj) 1 mg Q12H PRN IM 04/30/17 00:30 Miscellaneous Information 1 DAILY T-DERMAL 04/30/17 09:00 (Synthroid) 88 mcg DAILY@0600 PO 04/30/17 06:00 05/03/17 06:37 (Flagyl) 500 mg BID PO 04/30/17 09:00 05/03/17 08:40 (ZyPREXA) 10 mg Q12HR PO 05/02/17 15:15 05/03/17 08:40 Urinary Catheter: No A/P Problem List: (1) Schizophrenia ICD Code: F20.9 - Schizophrenia, unspecified (2) Hypothyroidism ICD Code: E03.9 - Hypothyroidism, unspecified Assessment and Plan Ms. Dowling is 41-year-old, Turkish with medical history of hypothyroidism. Per psychiatry, she has a distant history of schizophrenia. Per the medical record, Ms. Dowling was found by police [place] [address] walking in traffic. It was reported that she was almost hit by several vehicles. Police subsequently brought her to [facility] [place] [facility] for evaluation. The hospitalist team was consulted to manage her medical issue. Hypothyroidism: Pt taking medication as directed. Stated she will take it after discharge. Pt will need to followup with PCP or clinic 6 weeks after admission to have her thyroid level checked. Hospitalist team will sign off at this time. Please contact us for any questions or issues. Schizophrenia -As per psychiatry. Hypothyroidism -Synthroid 88 micrograms daily -Check levels in 6-8 weeks may be done on an outpatient basis with PCP Case discussed with Pt, RN. and Drs. Tian and Michael. Discharge Planning Pt will need follow-up blood work 6 weeks from admission to determine thyroid level. Problem Qualifiers (1) Hypothyroidism: Qualified Codes: E03.9 - Hypothyroidism, unspecified Ulises Balderas Jr. May 03, 2017 18:28
[2017-05-04] MEDS: LEVOTHYROXINE SODIUM 88 MCG TAB PO SCH (05:40)
[2017-05-04 06:03] VITALS: BP 137/76; PULSE 57; RESP 16; TEMP 97.7; O2SAT 98
[2017-05-04] MEDS: metroNIDAZOLE 500 MG TAB PO SCH ×2 (08:53→21:23)
[2017-05-04] MEDS: OLANZapine 5 MG TAB PO SCH ×2 (08:53→21:00)
[2017-05-04] MEDS: NICOTINE 21 MG/24 HR PATCH T-DERMAL SCH (09:00)
[2017-05-04] MEDS: REMOVE OLD PATCH T-DERMAL SCH (09:00)
--- NOTE | 2017-05-04 10:19 | HHI.PYPN ---
Subjective Remarks Patient was seen today for psychiatric reevaluation, patient at the beginning of the interview was cooperative, calm, but later on became paranoid and irritable. Patient says that nobody has the right to as aware she lives which he lives with. She says that she is want anybody to get into her private life and she knows the people has been reading her papers and tried to violate her privacy. She says that she doesn't trust anybody. Patient becomes disorganized with frequent loosening of associations and Incoherent speech. However she is sensitive to verbal de-escalation. Patient has been compliant with her medications, no significant side effects reported. She is fully oriented 3. Review of Systems Other No somatic complaints Objective Alert: Yes [place]: Person Mood: Calm Affect: Flat Memory Intact: Comment (not assessed) Hallucinations: Auditory (appears internally preoccupied) Delusions: Yes Delusion Type: Paranoid (suspect paranoia) Suicidal: Ideation (denies SI) Homicidal: Ideation (denies HI) Insight/Judgment Poor Labs Test 05/03/17 13:27 Blood Urea Nitrogen 12 MG/DL Creatinine 0.88 MG/DL Random Glucose 147 MG/DL Calcium Level 9.3 MG/DL Sodium Level 137 MEQ/L Potassium Level 3.7 MEQ/L Chloride Level 103 MEQ/L Carbon Dioxide Level 26.5 MEQ/L Anion Gap 8 MEQ/L Estimat Glomerular Filtration Rate 71 ML/MIN Vitals/IOs Vital Signs Date Time Temp Pulse Resp B/P (MAP) Pulse Ox O2 Delivery O2 Flow Rate FiO2 05/04/17 06:03 97.7 57 16 137/76 (96) 98 Assessment & Plan Problem List: (1) Schizophrenia ICD Codes: F20.9 - Schizophrenia, unspecified Assessment & Plan: Patient remains psychotic, with prominent paranoia and loosening of associations. We'll switch olanzapine to 20 mg at bedtime. Will add Haldol 5 mg a.m. daily to help with psychosis. Lab reviewed. Will order a EKG for baseline QTC. Assessment & Plan Estimated LOS: days Justification for Cont. Inpt. Patient remains acutely psychotic and needs to continue psychiatric hospitalization for stabilization Evan Blake MD May 04, 2017 10:19
[2017-05-04 18:00] VITALS: BP 153/91; PULSE 64; RESP 18; TEMP 98; O2SAT 98
[2017-05-04 20:30] VITALS: BP 134/87; PULSE 74; RESP 16; TEMP 97.8; O2SAT 96
[2017-05-05 05:58] VITALS: BP 121/69; PULSE 61; RESP 18; TEMP 98.1; O2SAT 98
[2017-05-05] MEDS: LEVOTHYROXINE SODIUM 88 MCG TAB PO SCH (06:14)
[2017-05-05] MEDS: REMOVE OLD PATCH T-DERMAL SCH (09:00)
[2017-05-05] MEDS: NICOTINE 21 MG/24 HR PATCH T-DERMAL SCH (09:00)
[2017-05-05] MEDS ORDERED: HALOPERIDOL 5 MG TAB PO SCH (09:00)
[2017-05-05] MEDS: metroNIDAZOLE 500 MG TAB PO SCH ×2 (10:29→21:34)
--- NOTE | 2017-05-05 14:50 | HHI.PYPN ---
Subjective Remarks Patient was seen today for psychiatric reevaluation, case was discussed with nurse in charge and also with social media strategist Radha. Patient remains disorganized in the unit, selectively mute, with flat affect, oddly related, today she says that she feels better, but she doesn't trust the nurses "and I don't trust you, because you are a different doctor every day". Patient says that she has decided to keep her mouth shut "because there are several people here trying to read my lips and to get information from my brain". Even though patient has been described as disorganized, internally preoccupied, no agitation or aggressive behavior has been reported. She is compliant with her medications, no significant side effects. Review of Systems Other No somatic complaints Objective Alert: Yes [place]: Person Mood: Calm Affect: Flat Memory Intact: Comment (not assessed) Hallucinations: Auditory (appears internally preoccupied) Delusions: Yes Delusion Type: Paranoid (suspect paranoia) Suicidal: Ideation (denies SI) Homicidal: Ideation (denies HI) Insight/Judgment Poor Vitals/IOs Vital Signs Date Time Temp Pulse Resp B/P (MAP) Pulse Ox O2 Delivery O2 Flow Rate FiO2 05/05/17 05:58 98.1 61 18 121/69 (86) 98 Assessment & Plan Problem List: (1) Schizophrenia ICD Codes: F20.9 - Schizophrenia, unspecified Assessment & Plan: Patient remains acutely psychotic, with marked paranoia, disorganized behavior and is patient, thought control, flat affect. Will increase Haldol to 5 mg twice a day for better control of psychosis. Patient might be a good candidate for Depot medication. Assessment & Plan Estimated LOS: days Justification for Cont. Inpt. Patient is acutely psychotic and needs psychiatric hospitalization for stabilization. Evan Blake MD May 05, 2017 14:50
[2017-05-05] MEDS: OLANZapine 5 MG TAB PO SCH (21:00)
[2017-05-05] MEDS: HALOPERIDOL 5 MG TAB PO SCH (21:35)
[2017-05-06 05:36] VITALS: BP 141/83; PULSE 69; RESP 18; TEMP 98.1; O2SAT 99
[2017-05-06] MEDS: LEVOTHYROXINE SODIUM 88 MCG TAB PO SCH (06:00)
[2017-05-06] MEDS: NICOTINE 21 MG/24 HR PATCH T-DERMAL SCH (08:21)
[2017-05-06] MEDS: REMOVE OLD PATCH T-DERMAL SCH (08:21)
[2017-05-06] MEDS: metroNIDAZOLE 500 MG TAB PO SCH ×2 (09:09→21:13)
[2017-05-06] MEDS: HALOPERIDOL 5 MG TAB PO SCH ×2 (09:09→21:13)
--- NOTE | 2017-05-06 14:21 | HHI.PYPN ---
Subjective Remarks Patient was seen today for psychiatric reevaluation, case was discussed with nurse and also with social security assessor in charge. As per nurse in charge patient today for the first time participated in group activities and she was mostly appropriate and calm. I saw the patient in the candelario, she reports that she has been feeling better, reports improved mood, good appetite, but poor sleep at night and lack of concentration. Patient becomes disorganized and tangential multiple occasions, but she can be redirectable. Still paranoid and irritable, she states that she doesn't want to disclose information about her personal life "because I know what you are and what you want from me and I don't trust doctors". Patient remains with a very flat affect, poverty of speech and thought delay. She is oriented 3, no attention deficit or fluctuation of consciousness present. No agitation or aggressive behavior reported. Review of Systems Other No somatic complaints Objective Alert: Yes [place]: Person, Place, Date Mood: Oppositional Affect: Flat, Blunted Memory Intact: Comment (not assessed) Hallucinations: Auditory (appears internally preoccupied) Delusions: Yes Delusion Type: Paranoid (suspect paranoia) Suicidal: Ideation (denies SI) Homicidal: Ideation (denies HI) Insight/Judgment Poor Vitals/IOs Vital Signs Date Time Temp Pulse Resp B/P (MAP) Pulse Ox O2 Delivery O2 Flow Rate FiO2 05/06/17 05:36 98.1 69 18 141/83 (102) 99 Intake and Output 05/06/17 05/06/17 05/07/17 08:00 16:00 00:00 Intake Total 840 ml Balance 840 ml Assessment & Plan Problem List: (1) Schizophrenia ICD Codes: F20.9 - Schizophrenia, unspecified Assessment & Plan: Patient remains acutely psychotic, paranoid, disorganized, tangential with flat affect, poverty of speech and blocking thought. However, she is more communicative and more integrated in the unit. She seems to be responding appropriately to current psychotropic regimen. Yesterday Haldol was increased to 5 mg twice a day. Today we'll keep current psychotropic regimen and will monitor closely mood and behavior. Extensive support, motivation and psychoeducation provided. QTc interval reviewed, 440 ms. Assessment & Plan Estimated LOS: days Justification for Cont. Inpt. Patient remains psychotic, disorganized tangential. She needs to continue her psychiatric hospitalization for stabilization and safety. Evan Blake MD May 06, 2017 14:21
[2017-05-06 16:52] VITALS: BP 151/92; PULSE 71; RESP 18; TEMP 99; O2SAT 97
[2017-05-06] MEDS: OLANZapine 5 MG TAB PO SCH (21:12)
[2017-05-07] MEDS: LEVOTHYROXINE SODIUM 88 MCG TAB PO SCH (05:48)
[2017-05-07 06:02] VITALS: BP 143/86; PULSE 77; RESP 16; TEMP 97.2; O2SAT 98
--- NOTE | 2017-05-07 07:58 | EKG ---
Date Performed: 05/05/2017 Time Performed: 16:09:30 PTAGE: 41 years EKG: Sinus rhythm NORMAL ECG PREVIOUS TRACING : 04/27/2017 20.25 Since previous tracing, the T-wave changes have improved. DOCTOR: Danish Valadez Interpretating Date/Time 05/07/2017 07:56:13
[2017-05-07] MEDS: HALOPERIDOL 5 MG TAB PO SCH (08:27)
[2017-05-07] MEDS: metroNIDAZOLE 500 MG TAB PO SCH ×2 (08:27→21:24)
[2017-05-07] MEDS: NICOTINE 21 MG/24 HR PATCH T-DERMAL SCH (09:00)
[2017-05-07] MEDS: REMOVE OLD PATCH T-DERMAL SCH (09:00)
--- NOTE | 2017-05-07 14:57 | HHI.PYPN ---
Subjective Remarks Patient seen today for psychiatric reevaluation, patient continues to be very paranoid, she says that she prefers not to talk with me "I don't trust you, you' re possibly information to the Social Security office". She seems to be very guarded, selectively mute, isolated in the unit. As per nurses patient hasn't displayed any agitation, any behavior dysregulation or aggression, she has been compliant with her medications, but participating poorly in activities, and internally preoccupied and talking to herself in the candelario. She is fully oriented 3. Review of Systems Other No somatic complaints Objective Alert: Yes [place]: Person, Place, Date Mood: Oppositional Affect: Flat, Blunted Memory Intact: Comment (not assessed) Hallucinations: Auditory (appears internally preoccupied) Delusions: Yes Delusion Type: Paranoid (suspect paranoia) Suicidal: Ideation (denies SI) Homicidal: Ideation (denies HI) Insight/Judgment Poor Vitals/IOs Vital Signs Date Time Temp Pulse Resp B/P (MAP) Pulse Ox O2 Delivery O2 Flow Rate FiO2 05/07/17 06:02 97.2 77 16 143/86 (105) 98 Intake and Output 05/07/17 05/07/17 05/08/17 08:00 16:00 00:00 Intake Total 240 ml Balance 240 ml Assessment & Plan Problem List: (1) Schizophrenia ICD Codes: F20.9 - Schizophrenia, unspecified Assessment & Plan: Patient continued to display acute symptoms of psychosis, increased paranoia, blocking thought, poverty of speech. Will increase Haldol to 5 mg in the morning and 10 mg at bedtime. Assessment & Plan Estimated LOS: days Justification for Cont. Inpt. A she is acutely psychotic, she needs to continue psychiatric hospitalization for stabilization. Evan Blake MD May 07, 2017 14:57
[2017-05-07 18:18] VITALS: BP 136/83; PULSE 88; RESP 16; TEMP 98.1; O2SAT 97
[2017-05-07] MEDS: OLANZapine 5 MG TAB PO SCH (21:00)
[2017-05-07] MEDS: HALOPERIDOL 10 MG TAB PO SCH (21:24)
[2017-05-08] MEDS: LEVOTHYROXINE SODIUM 88 MCG TAB PO SCH (06:19)
[2017-05-08 06:44] VITALS: BP 138/82; PULSE 80; RESP 16; TEMP 97.3; O2SAT 100
[2017-05-08] MEDS: REMOVE OLD PATCH T-DERMAL SCH (09:00)
[2017-05-08] MEDS: NICOTINE 21 MG/24 HR PATCH T-DERMAL SCH (09:00)
[2017-05-08] MEDS: HALOPERIDOL 5 MG TAB PO SCH (09:52)
[2017-05-08] MEDS: metroNIDAZOLE 500 MG TAB PO SCH ×2 (09:52→21:27)
[2017-05-08 16:00] VITALS: BP 146/68; PULSE 86; RESP 18; TEMP 97.9; O2SAT 98
--- NOTE | 2017-05-08 17:39 | HHI.PYPN ---
Subjective Remarks Patient was seen and case discussed with nursing. Patient says she is "better. " Affect remains blunted and anxious. Says she is no longer fearful. Appears less irritable compared to her admission. Remains somewhat internally preoccupied. Compliant with medications. Insight is poor Objective Alert: Yes [place]: Person, Place, Date Mood: Oppositional Affect: Restricted Memory Intact: Comment (not assessed) Hallucinations: Auditory (appears internally preoccupied) Delusions: Yes Delusion Type: Paranoid (suspect paranoia) Suicidal: Ideation (denies SI) Homicidal: Ideation (denies HI) Insight/Judgment Poor Vitals/IOs Vital Signs Date Time Temp Pulse Resp B/P (MAP) Pulse Ox O2 Delivery O2 Flow Rate FiO2 05/08/17 06:44 97.3 80 16 138/82 (100) 100 Assessment & Plan Problem List: (1) Schizophrenia ICD Codes: F20.9 - Schizophrenia, unspecified Assessment & Plan Continue current treatment plan Justification for Cont. Inpt. Patient would decompensate in a less restrictive setting Bryan Rocha DO May 08, 2017 17:38
[2017-05-08 18:00] VITALS: BP 146/68; PULSE 86; RESP 18; TEMP 97.9; O2SAT 98
[2017-05-08] MEDS: OLANZapine 5 MG TAB PO SCH (21:00)
[2017-05-08] MEDS: HALOPERIDOL 10 MG TAB PO SCH (21:27)
[2017-05-09 06:29] VITALS: BP 139/88; PULSE 57; RESP 16; TEMP 98.1; O2SAT 98
[2017-05-09] MEDS: LEVOTHYROXINE SODIUM 88 MCG TAB PO SCH (06:44)
[2017-05-09] MEDS: REMOVE OLD PATCH T-DERMAL SCH (08:23)
[2017-05-09] MEDS: metroNIDAZOLE 500 MG TAB PO SCH ×2 (08:23→20:15)
[2017-05-09] MEDS: HALOPERIDOL 5 MG TAB PO SCH (08:23)
[2017-05-09] MEDS: NICOTINE 21 MG/24 HR PATCH T-DERMAL SCH (08:23)
--- NOTE | 2017-05-09 15:59 | HHI.PYPN ---
Subjective Remarks Patient was seen and case discussed nursing. Patient remains difficult to engage. She has poor insight and answers with 1 word answers. Does not have any questions or concerns. Largely keeps to herself, not socializing, pacing the unit. Patient says she is sleeping and eating well. Compliant with medications Objective Alert: Yes [place]: Person, Place, Date Mood: Calm Affect: Blunted Memory Intact: Comment (not assessed) Hallucinations: Auditory (appears internally preoccupied) Delusions: Yes Delusion Type: Paranoid (suspect paranoia) Suicidal: Ideation (denies SI) Homicidal: Ideation (denies HI) Insight/Judgment Poor Vitals/IOs Vital Signs Date Time Temp Pulse Resp B/P (MAP) Pulse Ox O2 Delivery O2 Flow Rate FiO2 05/09/17 06:29 98.1 57 16 139/88 (105) 98 Assessment & Plan Problem List: (1) Schizophrenia ICD Codes: F20.9 - Schizophrenia, unspecified Assessment & Plan Continue current treatment plan Justification for Cont. Inpt. Patient would decompensate in a less restrictive setting Bryan Rocha DO May 09, 2017 15:59
[2017-05-09] MEDS: OLANZapine 5 MG TAB PO SCH (20:15)
[2017-05-09] MEDS: HALOPERIDOL 10 MG TAB PO SCH (20:15)
[2017-05-10] MEDS: LEVOTHYROXINE SODIUM 88 MCG TAB PO SCH (06:05)
[2017-05-10 06:35] VITALS: BP 131/91; PULSE 84; RESP 18; TEMP 97.9; O2SAT 98
[2017-05-10] MEDS: HALOPERIDOL 5 MG TAB PO SCH (08:34)
[2017-05-10] MEDS: metroNIDAZOLE 500 MG TAB PO SCH ×2 (08:35→21:31)
--- NOTE | 2017-05-10 15:22 | HHI.PYPN ---
Subjective Remarks Patient was seen and case discussed with nursing. Per nursing patient is responding to internal stimuli and is looking out the window at times talking to herself. Patient remains largely seclusive to self spending time sitting in a dayroom in the corner. Insight remains poor, one-word answers. Plan includes to find her own apartment. Tolerating medications well Objective Alert: Yes [place]: Person, Place, Date Mood: Calm Affect: Blunted Memory Intact: Comment (not assessed) Hallucinations: Auditory (appears internally preoccupied) Delusions: Yes Delusion Type: Paranoid (suspect paranoia) Suicidal: Ideation (denies SI) Homicidal: Ideation (denies HI) Insight/Judgment Poor Vitals/IOs Vital Signs Date Time Temp Pulse Resp B/P (MAP) Pulse Ox O2 Delivery O2 Flow Rate FiO2 05/10/17 06:35 97.9 84 18 131/91 (104) 98 Assessment & Plan Problem List: (1) Schizophrenia ICD Codes: F20.9 - Schizophrenia, unspecified Assessment & Plan Continue current treatment plan Justification for Cont. Inpt. Patient would decompensate in a less restrictive setting Bryan Rocha DO May 10, 2017 15:22
[2017-05-10 17:44] VITALS: BP 144/85; PULSE 79; RESP 17; TEMP 98.3; O2SAT 98
[2017-05-10] MEDS: OLANZapine 5 MG TAB PO SCH (21:00)
[2017-05-10] MEDS: HALOPERIDOL 10 MG TAB PO SCH (21:32)
[2017-05-11 06:16] VITALS: BP 125/77; PULSE 77; RESP 16; TEMP 97.9; O2SAT 100
[2017-05-11] MEDS: LEVOTHYROXINE SODIUM 88 MCG TAB PO SCH (06:16)
[2017-05-11] MEDS: metroNIDAZOLE 500 MG TAB PO SCH ×2 (08:58→21:26)
[2017-05-11] MEDS: HALOPERIDOL 5 MG TAB PO SCH (08:58)
--- NOTE | 2017-05-11 11:19 | HHI.PYPN ---
Subjective Remarks Patient was seen today for psychiatric reevaluation along with medical student and Bing, patient is calm, cooperative even pleasant today. Says that she is feeling much better, patient is to have a wider range of affect, her affect is brighter, more communicative and insightful. Patient says that she has been taking her medications, she feels clearer. Patient shares motivation to continue with her psychotropics, get better, work with a high school social science teacher in a safe discharge. Patient also agree with signing voluntary admission. Patient denies paranoia, she denies delusions of reference, she denies visual and auditory hallucinations, she denies suicidal and homicidal ideation. As per nurse in charge, some disorganized behavior and paranoia in the unit still reported occasionally. Review of Systems Other No somatic complaints Objective Alert: Yes [place]: Person, Place, Date Mood: Calm Affect: Blunted Memory Intact: Comment (not assessed) Hallucinations: Auditory (appears internally preoccupied) Delusions: Yes Delusion Type: Paranoid (suspect paranoia) Suicidal: Ideation (denies SI) Homicidal: Ideation (denies HI) Insight/Judgment Improve Vitals/IOs Vital Signs Date Time Temp Pulse Resp B/P (MAP) Pulse Ox O2 Delivery O2 Flow Rate FiO2 05/11/17 06:16 97.9 77 16 125/77 (93) 100 Assessment & Plan Problem List: (1) Schizophrenia ICD Codes: F20.9 - Schizophrenia, unspecified Assessment & Plan: Patient continues to show positive response to psychotropic regimen. No medication changes today. Patient will sign voluntary admission. Extensive support, motivation and psychoeducation provided. Assessment & Plan Estimated LOS: days Justification for Cont. Inpt. Patient has an elevated risk to decompensate out of an structure environment. Evan Blake MD May 11, 2017 11:19
[2017-05-11 17:27] VITALS: BP 156/100; PULSE 79; RESP 18; TEMP 98.2; O2SAT 96
[2017-05-11] MEDS: OLANZapine 5 MG TAB PO SCH (21:00)
[2017-05-11] MEDS: HALOPERIDOL 10 MG TAB PO SCH (21:26)
[2017-05-12] MEDS: LEVOTHYROXINE SODIUM 88 MCG TAB PO SCH (06:00)
[2017-05-12 06:15] VITALS: BP 154/81; PULSE 84; RESP 18; TEMP 98.2; O2SAT 99
[2017-05-12] MEDS: HALOPERIDOL 5 MG TAB PO SCH (09:00)
[2017-05-12] MEDS: metroNIDAZOLE 500 MG TAB PO SCH ×2 (09:00→22:24)
[2017-05-12] MEDS ORDERED: HALO5TAB PO (14:36)
[2017-05-12] MEDS ORDERED: OLAN5TAB PO (14:36)
[2017-05-12] MEDS ORDERED: SYNT88TA PO (14:36)
[2017-05-12] MEDS ORDERED: [UNRECOGNIZED DRUG - CODE] IM (14:36)
[2017-05-12] MEDS ORDERED: HALO10TA PO (14:36)
--- NOTE | 2017-05-12 14:40 | HHI.DS ---
Psychiatry Discharge Summary Inpatient Psychiatric care?: Yes Advance Directive: No Reason Not Provided: Due to Patient Condition Mental Health AdvanceDirective: No Health Care Proxy: No Admission Admission Date Apr 30, 2017 at 00:10 Admission Diagnosis: (1) Schizophrenia ICD Code: F20.9 - Schizophrenia, unspecified Brief History 04/29/2017 The patient is a 41 year old woman, no social and psychiatric circumstances and history, no medical history, From ED provider note: "Patient brought in via EMS after [place] in the middle [place] [address] [place] [address] Patient was almost hit by several cars when a uniform patrol police officer approached her and asked her what she was doing. The patient asked "why are you stopping me?" And reportedly that the last thing she said. After that patient reportedly zoned out with a blank stare and stopped verbalizing. Patient still responds to painful stimuli. There was no ID found on her and the patient came in to the facility as a [place]."Per nurse report, she does follow certain commands. During my interview, she does seem to understand some of my questions and nod or shake her head to communicate. On psychiatric evaluation the patient is non-cooperative, selectively mute, she seems to be internally preoccupied doesn't answer any question. Due to the level of concern, patient was walking in the highway, has been acting very bizarre, we suspected that the patient is acutely psychotic. 04/30/2017 the patient is a 41 years old [place] woman, homeless, but , poor social and family support, unemployed, with reported psychiatric history of schizophrenia, she denies previous psychiatric hospitalizations, she denies psychotropics, she denies suicidal attempts, medical history of hypothyroidism, who was brought to the hospital yesterday under Barbre act because she was found by police wandering in the highway: "Patient brought in via EMS after being [place] in the [place] [address] [place] [address] Patient was almost hit by several cars when a uniform patrol police officer approached her and asked her what she was doing. The patient asked "why are you stopping me?". She was seen yesterday in the ER, but she refused to talk with me. Today and psychiatric evaluation patient is found sleeping, but easily arousable. She is calm, cooperative. Patient reports that yesterday she wanted talk because she was very upset that the police brought her to the hospital. She says that all she was doing was walking in the street. Patient says that she has been living in the street for years, since she from her . She says that she has been living in denies about 3 years now. She reports distant history of schizophrenia, but denies previous psychiatric hospitalizations, denies taking medications, she doesn't remember medications taking in the past. At this moment the patient reports good mood, she describes her mood as happy, even though she has a flat affect and seems to be internally preoccupied. She denies hopelessness, she denies helplessness, she denies worthlessness, she denies anhedonia, she reports good sleep, good appetite, good level of concentration, and I suicidal and was ideation, she denies visual and auditory hallucinations. Patient is fully oriented in 3, no attention deficit, no gross cognitive impairment present. Patient denies the use of illicit drugs and alcohol. Tobacco Use In Past 30 Days: Refused To Answer Alcohol Use: Never Hospital Course Patient was admitted to the psychiatric unit, brought by police, on the Barber act, due to increased paranoia, psychosis, and because the patient was wondering a walking the streets. Initial psychosocial psychiatric assessment was performed. Safety measures taken. She was initiated in Haldol 5 mg twice a day. Medication was titrated as patient needed she was able to tolerate. Initially the patient was mute, very guarded and suspicious, but she is started to respond to medications she up and up, became more participative and cooperative in the unit. No collateral information could be rich for this patient. No agitation, no aggressive behavior, no hostility reported during this hospitalization. At the moment of the discharge, patient is a little bit paranoid, but with a brighter affect, more logical, relevant and lineal. Patient denies visual and auditory hallucinations, suicidal and homicidal ideation. I I offer her injectable medication, but she refuses. Results Blood Pressure 154 / 81 Vital Signs Date Time Temp Pulse Resp B/P (MAP) Pulse Ox O2 Delivery O2 Flow Rate FiO2 05/12/17 06:15 98.2 84 18 154/81 (105) 99 Laboratory Results Test 05/01/17 10:57 Cholesterol Level 221 MG/DL (120-200) HDL Cholesterol 43.5 MG/DL (40.0-60.0) Hemoglobin A1c 5.7 % (4.3-6.0) LDL Cholesterol 139 MG/DL (0-99) Triglycerides Level 195 MG/DL (42-150) Summary of Procedures Don Pending results at discharge: No Medications # of Antipsychotic meds at D/C: 2 Approp Antipsych med options 1 - Minimum of three failed multiple trials of monotherapy. 2 - Documented plan to taper to monotherapy due to previous use of multiple meds OR cross-taper in progress at D/C. 3 - Documentation of augmentation of Clozapine. 4 - Justification other than those listed in allowable values 1-3, document here : Discharge Discharge Date: May 13, 2017 Discharge Diagnosis: (1) Schizophrenia Diagnosis: Principal ICD Code: F20.9 - Schizophrenia, unspecified Mental Status Exam at Disch [place] woman, edentulous, poor hygiene, disheveled, [facility], calm and cooperative, her speech is reticent, low volume, mood is euthymic, affect flat. Thought processes is linear, concrete, with some blocking thought. Content is devoid of suicidal ideation, homicidal ideation, visual and auditory hallucinations. Mild paranoia present. Impulse control, judgment, insight is fair. Cognition is intact. Pt Condition on Discharge: Stable Discharge Disposition: Discharge Home Discharge Instructions Diet Instructions: As Tolerated, No Restrictions Activities you can perform: Weight Bearing as Princess Scheduled Appointment: Jose [place] Discharge Time > 30 minutes Discharge/Advance Care Plan Health Problems: (1) Schizophrenia Goals to promote your health * To prevent worsening of your condition and complications * To maintain your health at the optimal level Directions to meet your goals Take your medications as prescribed Follow your dietary instruction Follow activity as directed Keep your appointments as scheduled Take your immunizations and boosters as scheduled If your symptoms worsen call your PCP, if no PCP go to Urgent Care Center or Emergency Room For 15/03 questions related to your inpatient stay or results of tests pending at discharge, please contact Dr. Evan Blake at Smoking is Dangerous to Your Health. Avoid second hand smoking Problem Qualifiers (1) Schizophrenia: Qualified Codes: F20.0 - Paranoid schizophrenia Evan Blake MD May 12, 2017 14:40
--- NOTE | 2017-05-12 14:43 | HHI.PYPN ---
Subjective Remarks Patient seen today for psychiatric reevaluation, patient states that she feels much better, still guarded and a little bit paranoid, but reports good mood, denies depression, denies anxiety, denies perceptual disturbances, denies suicidal and homicidal ideation. Patient has been mostly calm and cooperative in the unit, no agitation or aggressive behavior reported, compliant with medications, no significant side effects. Review of Systems Other No somatic complaints Objective Alert: Yes [place]: Person, Place, Date Mood: Calm Affect: Blunted Memory Intact: Comment (not assessed) Hallucinations: Auditory (appears internally preoccupied) Delusions: Yes Delusion Type: Paranoid (suspect paranoia) Suicidal: Ideation (denies SI) Homicidal: Ideation (denies HI) Insight/Judgment Fair Vitals/IOs Vital Signs Date Time Temp Pulse Resp B/P (MAP) Pulse Ox O2 Delivery O2 Flow Rate FiO2 05/12/17 06:15 98.2 84 18 154/81 (105) 99 Assessment & Plan Problem List: (1) Schizophrenia ICD Codes: F20.9 - Schizophrenia, unspecified Assessment & Plan Estimated LOS: days Justification for Cont. Inpt. Patient has an increased chance to decompensate at a lower level of care. Problem Qualifiers (1) Schizophrenia: Qualified Codes: F20.0 - Paranoid schizophrenia Evan Blake MD May 12, 2017 14:43
[2017-05-12 18:41] VITALS: BP 186/117; PULSE 86; RESP 17; TEMP 98.4; O2SAT 99
[2017-05-12] MEDS: HALOPERIDOL 10 MG TAB PO SCH (22:24)
[2017-05-12] MEDS: OLANZapine 5 MG TAB PO SCH (22:24)
[2017-05-13 05:59] VITALS: BP 139/89; PULSE 66; RESP 18; TEMP 97.8
[2017-05-13] MEDS: LEVOTHYROXINE SODIUM 88 MCG TAB PO SCH (06:34)
[2017-05-13] MEDS: metroNIDAZOLE 500 MG TAB PO SCH (09:51)
[2017-05-13] MEDS: HALOPERIDOL 5 MG TAB PO SCH (09:51)
== END 2017-05-13 10:45 | disposition home or self-care (01) | DRG 885 ==
LOC: H260 00:10
PROVIDERS: ADMIT Psychiatry & Neurology Psychiatry; ATTEND Psychiatry & Neurology Psychiatry
DX: F20.0 Paranoid schizophrenia (principal); M62.82 Rhabdomyolysis; Z59.0 Homelessness; B35.6 Tinea cruris; E03.9 Hypothyroidism, unspecified; F94.0 Selective mutism; R41.82 Altered mental status, unspecified; R73.9 Hyperglycemia, unspecified; E87.6 Hypokalemia; N76.0 Acute vaginitis; A74.9 Chlamydial infection, unspecified; R94.31 Abnormal electrocardiogram [ECG] [EKG]; H57.8 Other specified disorders of eye and adnexa; F20.1 Disorganized schizophrenia
CPT/HCPCS: 70450; 71010; 74000; 80048; 80053; 80061; 80307; 81001; 82533; 82550; 82552; 82948; 83036; 83605; 83735; 84439; 84443; 84481; 84484; 84703; 85025; 85610; 85730; 87040; 87070; 87205; 87210; 87220; 87491; 87591; 89321; 93005; 96361; 96365; 96366; 96367; 96368; 96372; 96375; G0378; G0481; J1650; J2543; J3370; J3480; J7030; J7050; P9612; Q0163

== ENCOUNTER 2017-05-13 20:54 | Inpatient (IN) | payer OTHER, MEDICARE ==
[~2017-05-13] VITALS: Ht 170.2 cm; Wt 92.6 kg
[~2017-05-13 20:54] MED LIST changes: +HALO10TA PO; +HALO5TAB PO; +[UNRECOGNIZED DRUG - CODE] IM
[2017-05-13 21:12] VITALS: BP 159/98; PULSE 120; RESP 16; TEMP 99.2; O2SAT 97
[2017-05-13 22:14] LABS: AUTOMATED NEUTROPHIL # 17.5 TH/MM3 (1.8-7.7); BASOPHIL # 0.1 TH/MM3 (0-0.2); BASOPHIL % 0.5 % (0.0-2.0); EOSINOPHIL # 0.1 TH/MM3 (0-0.4); EOSINOPHIL % 0.4 % (0.0-4.0); HEMATOCRIT 43.4 % (35.0-46.0); HEMO FLAGS DIFF FINAL; LYMPH % 16.6 % (9.0-44.0); LYMPHOCYTE # 3.8 TH/MM3 (1.0-4.8); MEAN CELL VOLUME 87.9 FL (80.0-100.0); MEAN CORPUSCULAR HEMOGLOBIN 30.5 PG (27.0-34.0); MEAN CORPUSCULAR HGB CONC 34.6 % (32.0-36.0); MONO % 6.1 % (0.0-8.0); NEUT % 76.4 % (16.0-70.0); PLATELET COUNT 307 TH/MM3 (150-450); RED BLOOD COUNT 4.93 MIL/MM3 (4.00-5.30); RED CELL DISTRIBUTION WIDTH 14.2 % (11.6-17.2); WHITE BLOOD COUNT 22.9 TH/MM3 (4.0-11.0)
[2017-05-13 22:48] LABS: ALKALINE PHOSPHATASE 105 U/L (45-117); TOTAL BILIRUBIN ADULT 0.4 MG/DL (0.2-1.0)
[2017-05-13 22:50] LABS: ALT (GPT) 29 U/L (10-53); ANION GAP 12 MEQ/L (5-15); AST (GOT) 20 U/L (15-37); BLOOD UREA NITROGEN 21 MG/DL (7-18); CHLORIDE 106 MEQ/L (98-107); GLOMERULAR FILTRATION RATE 58 ML/MIN (>89); POTASSIUM 3.4 MEQ/L (3.5-5.1); SODIUM (NA) 140 MEQ/L (136-145)
--- NOTE | 2017-05-13 23:05 | PD ---
HPI Chief Complaint: Psychiatric Symptoms Time Seen by Provider: 21:28 Travel History International Travel<30 days: No Contact w/Intl Traveler<30days: No Traveled to known affect area: No History of Present Illness HPI Patient is a 41-year-old female who comes in by police under Barber act. She is just discharged this morning from the psychiatric unit. She says she was trying to get into her grandfather's house when police took her away. Per police it was not her house and she was acting strangely when they arrived, so they placed under Barber act because they're concerned about her ability to care for herself. She has no complaints at this time. She denies cough, cold, fever , urinary symptoms. PFSH Past Medical History ?: Unknown LMP: UNKNOWN Social History Alcohol Use: No Tobacco Use: No Allergies-Medications (Allergen,Severity, Reaction): Coded Allergies: acetaminophen (Verified Allergy, Severe, 05/04/17) aspirin (Verified Allergy, Severe, 05/04/17) lorazepam (Verified Allergy, Severe, 05/04/17) Reported Meds & Prescriptions Reported Meds & Active Scripts Active Benztropine Inj (Benztropine Mesylate) 2 Mg/2 Ml Inj 1 Mg IM Q12H PRN Haloperidol 10 Mg Tab 10 Mg PO HS 30 Days Haloperidol 5 Mg Tab 5 Mg PO DAILY 30 Days Olanzapine 5 Mg Tab 20 Mg PO HS Synthroid (Levothyroxine Sodium) 88 Mcg Tab 88 Mcg PO DAILY@0600 Olanzapine 10 Mg Tab 10 Mg PO HS PRN Olanzapine 5 Mg Tab 5 Mg PO Q12HR Flagyl (Metronidazole) 500 Mg Tab 500 Mg PO BID Review of Systems Except as stated in HPI: all other systems reviewed are Neg General / Constitutional: No: Fever, Chills Eyes: No: Blurred Vision HENT: No: Headaches, Lightheadedness Cardiovascular: No: Chest Pain or Discomfort Respiratory: No: Cough, Shortness of Breath Gastrointestinal: No: Nausea, Vomiting, Abdominal Pain Genitourinary: No: Dysuria Musculoskeletal: No: Pain Skin: No Rash, No Change in Pigmentation Psychiatric: No: Suicidal Ideations, Homicidal Ideation Physical Exam Narrative GENERAL: Awake and alert, in no acute distress. SKIN: Focused skin assessment warm/dry. HEAD: Atraumatic. Normocephalic. EYES: Pupils equal and round. No scleral icterus. Extraocular movements intact. ENT: Mucous membranes pink and moist. NECK: Trachea midline. No JVD. CARDIOVASCULAR: Regular rate and rhythm. No murmur appreciated. RESPIRATORY: No accessory muscle use. Clear to auscultation. Breath sounds equal bilaterally. GASTROINTESTINAL: Abdomen soft, non-tender, nondistended. MUSCULOSKELETAL: No obvious deformities. No clubbing. No cyanosis. No edema. NEUROLOGICAL: Awake and alert. No obvious cranial nerve deficits. Motor grossly within normal limits. Normal speech. PSYCHIATRIC: Appropriate mood and affect; insight and judgment normal. Data Data Last Documented VS Vital Signs Date Time Temp Pulse Resp B/P (MAP) Pulse Ox O2 Delivery O2 Flow Rate FiO2 05/13/17 21:12 99.2 120 16 159/98 (118) 97 Orders Orders Complete Blood Count With Diff (05/13/17 21:34) Comprehensive Metabolic Panel (05/13/17 21:34) Psych Screen (05/13/17 21:34) Drug Screen, Random Urine (05/13/17 21:34) Labs Laboratory Tests Test 05/13/17 21:55 White Blood Count 22.9 TH/MM3 Red Blood Count 4.93 MIL/MM3 Hemoglobin 15.0 GM/DL Hematocrit 43.4 % Mean Corpuscular Volume 87.9 FL Mean Corpuscular Hemoglobin 30.5 PG Mean Corpuscular Hemoglobin Concent 34.6 % Red Cell Distribution Width 14.2 % Platelet Count 307 TH/MM3 Mean Platelet Volume 9.2 FL Neutrophils (%) (Auto) 76.4 % Lymphocytes (%) (Auto) 16.6 % Monocytes (%) (Auto) 6.1 % Eosinophils (%) (Auto) 0.4 % Basophils (%) (Auto) 0.5 % Neutrophils # (Auto) 17.5 TH/MM3 Lymphocytes # (Auto) 3.8 TH/MM3 Monocytes # (Auto) 1.4 TH/MM3 Eosinophils # (Auto) 0.1 TH/MM3 Basophils # (Auto) 0.1 TH/MM3 CBC Comment DIFF FINAL Differential Comment Blood Urea Nitrogen 21 MG/DL Creatinine 1.05 MG/DL Random Glucose 160 MG/DL Total Protein 8.3 GM/DL Albumin 4.8 GM/DL Calcium Level 9.6 MG/DL Alkaline Phosphatase 105 U/L Aspartate Amino Transf (AST/SGOT) 20 U/L Alanine Aminotransferase (ALT/SGPT) 29 U/L Total Bilirubin 0.4 MG/DL Sodium Level 140 MEQ/L Potassium Level 3.4 MEQ/L Chloride Level 106 MEQ/L Carbon Dioxide Level 22.0 MEQ/L Anion Gap 12 MEQ/L Estimat Glomerular Filtration Rate 58 ML/MIN MDM Medical Decision Making Medical Screen Exam Complete: Yes Emergency Medical Condition: Yes Medical Record Reviewed: Yes Differential Diagnosis Schizophrenia versus psychosis versus effusion versus intoxication Narrative Course Patient is a 41-year-old female who comes in under Barber act because she is trying to get into someone's house. She has no medical complaints at this time , no signs of infection. Labs show an elevated white blood cell count, but she was just discharged from the hospital and has no medical complaints. She has had elevated white blood cell counts in the past. She'll be medically cleared for psychiatric evaluation. Diagnosis Primary Impression: Schizophrenia Qualified Codes: F20.9 - Schizophrenia, unspecified Condition: Stable Grace Herbert MD May 13, 2017 23:05
[2017-05-14 02:36] VITALS: BP 121/82; PULSE 82; RESP 14; O2SAT 97
[2017-05-14 08:50] VITALS: BP 146/91; PULSE 72; RESP 18; O2SAT 100
[2017-05-14 10:50] VITALS: BP 134/80; PULSE 73; RESP 18; O2SAT 98
[2017-05-14] MEDS ORDERED: LORazepam 2 MG/ML VIAL IM PRN (13:00)
[2017-05-14] MEDS ORDERED: LORazepam 1 MG TAB PO PRN (13:00)
[2017-05-14] MEDS ORDERED: ACETAMINOPHEN 325 MG TAB PO PRN (13:00)
--- NOTE | 2017-05-14 13:05 | HHI.HP ---
Provisional Diagnosis Admission Date May 14, 2017 at 12:52 [place] I. Schizophrenia Certification of Person's Competence To Provide Express and Informed Consent I have personally examined Noni Dowling , a person being served at [facility] on, May 14, 2017 12:56. Express and informed consent means consent voluntarily given in writing, by a competent person, after sufficient explanation and disclosure of the subject matter involved to enable the person to make a knowing and willful decision without any element of force, fraud, deceit, duress, or other form of constraint or coercion. This person is 18 years of age or older, is not now known to be incompetent to consent to treatment with a guardian advocate, and does not have a health care surrogate or proxy currently making medical treatment decisions. I have found this person to be one of the following: [x] Competent to provide express and informed consent, as defined above, for voluntary admission to this facility and is competent to provide express and informed consent for treatment. He/she has the consistent capacity to make well reasoned, willful, and knowing decisions concerning his or her medical or mental health treatment. The person fully and consistently understands the purpose of the admission for examination/placement and is fully capable of personally exercising all rights [place] Incompetent to provide express and informed consent to voluntary admission, and this is incompetent to provide express and informed consent to treatment. The person must be transferred to involuntary status and a petition for a guardian advocate filed with the Circuit Court. [] Refusing to provide express and informed consent to voluntary admission but is competent to provide express and informed consent for treatment. The person must be discharged or transferred to involuntary status. Form shall be completed within 24 hours of a person's arrival at the receiving facility and filed in the clinical record of each person: 1. Admitted on a voluntary basis 2. Permitted to provide express and informed consent to his/her own treatment 3. Allowed to transfer from involuntary to voluntary status 4. Prior to permitting a person to consent to his or her own treatment after having been previously found incompetent to consent to treatment. History of Present Illness Capacity: Has Capacity HPI 41-year-old female brought in under a Barber act by law enforcement. Apparently the patient was discharged from psychiatry yesterday and aim back on the same day after being picked up by police. She was apparently attempting to break into a home that she indicated belonged to her grandfather. However, the home did not belong to the grandfather and the patient was felt to be burglarizing the home in a psychotic state. Law enforcement noticed that her behavior and verbal content were bizarre and incomprehensible. At the present time, the patient is alert and oriented to person and place. She is a poor historian and does not understand why she is here. She remains unable to care for herself and is felt to be at great risk for self neglect. She is disorganized, easily confused and demonstrating loose associations. Review of Systems Except as stated in HPI: all other systems reviewed are Neg Past Psych History Psychological trauma history Unknown psychological trauma. Violence risk - others (6 mos) Minimal Violence risk - self (6 mos) High risk of self neglect and possibly self harm. Substance Abuse History Drugs/Alcohol past 12 months Denied Past Family Social History Coded Allergies: acetaminophen (Verified Allergy, Severe, 05/04/17) aspirin (Verified Allergy, Severe, 05/04/17) lorazepam (Verified Allergy, Severe, 05/04/17) Active Scripts Benztropine Inj (Benztropine Inj) 2 Mg/2 Ml Inj, 1 MG IM Q12H Y for EXTRA PYRAMIDAL SYMPTOMS, #60 INJECTION Prov:Evan Blake MD 05/12/17 Haloperidol (Haloperidol) 10 Mg Tab, 10 MG PO HS for health for 30 Days, TAB Prov:Evan Blake MD 05/12/17 Haloperidol (Haloperidol) 5 Mg Tab, 5 MG PO DAILY for health for 30 Days, #30 TAB Prov:Evan Blake MD 05/12/17 Olanzapine (Olanzapine) 5 Mg Tab, 20 MG PO HS for health, #30 TAB 0 Refills Prov:Evan Blake MD 05/12/17 Levothyroxine (Synthroid) 88 Mcg Tab, 88 MCG PO DAILY@0600 for health, #30 TAB Prov:Evan Blake MD 05/12/17 Olanzapine (Olanzapine) 10 Mg Tab, 10 MG PO HS Y for SEVERE ANXIETY OR AGITATION , #30 TAB Prov:Michael Gee MD, R3 04/29/17 Olanzapine (Olanzapine) 5 Mg Tab, 5 MG PO Q12HR, #60 TAB Prov:Michael Gee MD, R3 04/29/17 Metronidazole (Flagyl) 500 Mg Tab, 500 MG PO BID, #10 TAB Prov:Michael Gee MD, R3 04/29/17 Current Medications Medications (Trade) Dose Ordered Sig/Celeste Route Start Time Stop Time Status Last Admin (Ativan) 1 mg Q6H PRN PO 05/14/17 13:00 UNV (Ativan Inj) 1 mg Q6H PRN IM 05/14/17 13:00 UNV (Tylenol) 650 mg Q4H PRN PO 05/14/17 13:00 UNV (Milk Of Magnesia Liq) 30 ml DAILY PRN PO 05/14/17 13:00 UNV (Mag-Al Plus Susp Liq) 30 ml Q6H PRN PO 05/14/17 13:00 UNV (Synthroid) 88 mcg DAILY@0600 PO 05/14/17 13:00 UNV (ZyPREXA) 20 mg HS PO 05/14/17 21:00 UNV Family History See previous admission. Social History Minimal family support. Homeless. Denies use of alcohol or drugs. Long history of schizophrenia. Patient's Strengths (min. 2) Resilient and has access to healthcare. Physical Exam GENERAL: SKIN: Warm and dry. HEAD: Normocephalic. EYES: No scleral icterus. No injection or drainage. NECK: Supple, trachea midline. No JVD or lymphadenopathy. CARDIOVASCULAR: Regular rate and rhythm without murmurs, gallops, or rubs. RESPIRATORY: Breath sounds equal bilaterally. No accessory muscle use. GASTROINTESTINAL: Abdomen soft, non-tender, nondistended. MUSCULOSKELETAL: No cyanosis, or edema. BACK: Nontender without obvious deformity. No CVA tenderness. Vital Signs Vital Signs Date Time Temp Pulse Resp B/P (MAP) Pulse Ox O2 Delivery O2 Flow Rate FiO2 05/14/17 10:50 73 18 134/80 (98) 98 Room Air 05/13/17 21:12 99.2 Lab Results Test 05/13/17 21:55 05/14/17 01:20 White Blood Count 22.9 TH/MM3 Red Blood Count 4.93 MIL/MM3 Hemoglobin 15.0 GM/DL Hematocrit 43.4 % Mean Corpuscular Volume 87.9 FL Mean Corpuscular Hemoglobin 30.5 PG Mean Corpuscular Hemoglobin Concent 34.6 % Red Cell Distribution Width 14.2 % Platelet Count 307 TH/MM3 Mean Platelet Volume 9.2 FL Neutrophils (%) (Auto) 76.4 % Lymphocytes (%) (Auto) 16.6 % Monocytes (%) (Auto) 6.1 % Eosinophils (%) (Auto) 0.4 % Basophils (%) (Auto) 0.5 % Neutrophils # (Auto) 17.5 TH/MM3 Lymphocytes # (Auto) 3.8 TH/MM3 Monocytes # (Auto) 1.4 TH/MM3 Eosinophils # (Auto) 0.1 TH/MM3 Basophils # (Auto) 0.1 TH/MM3 CBC Comment DIFF FINAL Differential Comment Blood Urea Nitrogen 21 MG/DL Creatinine 1.05 MG/DL Random Glucose 160 MG/DL Total Protein 8.3 GM/DL Albumin 4.8 GM/DL Calcium Level 9.6 MG/DL Alkaline Phosphatase 105 U/L Aspartate Amino Transf (AST/SGOT) 20 U/L Alanine Aminotransferase (ALT/SGPT) 29 U/L Total Bilirubin 0.4 MG/DL Sodium Level 140 MEQ/L Potassium Level 3.4 MEQ/L Chloride Level 106 MEQ/L Carbon Dioxide Level 22.0 MEQ/L Anion Gap 12 MEQ/L Estimat Glomerular Filtration Rate 58 ML/MIN Urine Opiates Screen NEG Urine Barbiturates Screen NEG Urine Amphetamines Screen NEG Urine Benzodiazepines Screen NEG Urine Cocaine Screen NEG Urine Cannabinoids Screen NEG Mental Status Examination Speech: Hesitant Orientation: Person, Place Memory: Impaired (describe) Thought Process: Loose Association Thought Content: Bizarre thinking Hallucination Type: Auditory Attention and Concentration: Easily Distracted Suicidal Ideation: No Previous Suicide Attempts: No Homicidal Ideation: No Previous Homicide Attempts: No Insight: Poor Judgment: Unrealistic Affect: Anxious Affect if Inappropriate: Blunt Mood: Anxious Motor Activity: Normal gait Assessment & Plan Problem List: (1) Schizophrenia, 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 By attempting to break into the home of an unknown person, thinking it belongs to her grandfather, she puts herself at great risk for harm. For this. Reason she is being admitted. This physician is ordering a CBC and basic metabolic profile as the patient was recently admitted. She will also have thyroid stimulating hormone and vitamin B -12 and vitamin D levels checked to determine if there are deficiencies in these areas that might be causing or contributing to her psychosis. Additionally, this physician is obtaining a EKG to determine the patient's cardiac conduction status. She was on 2 antipsychotics which included Haldol and Zyprexa, which can adversely affect her cardiac conduction. The Haldol was discontinued and the patient was placed on low dose Abilify along with the Zyprexa. Patient may be a candidate for long-acting injectable Abilify. Case was discussed with the patient's nurse, who fears the patient may be and a test was ordered by this physician. Patient does walk around the emergency department holding her abdomen. This physician is also involving occupational therapy to assess the patient's functionality. This will help determine whether the patient can care for herself or needs a higher level of observation, especially upon discharge. Case management is being involved together further information and assist with disposition planning. Danish Ordaz MD May 14, 2017 13:05
[2017-05-14] MEDS ORDERED: ALUMINUM/MAGNESIUM/SIMETH 30 ML CUP PO PRN (14:00)
[2017-05-14] MEDS ORDERED: MAGNESIUM HYDROXIDE SUSP 30 ML CUP PO PRN (14:00)
[2017-05-14] MEDS: LEVOTHYROXINE SODIUM 88 MCG TAB PO SCH (14:19)
[2017-05-14 16:15] VITALS: BP 166/100; PULSE 74; RESP 18; TEMP 97.7; O2SAT 99
[2017-05-14] MEDS: OLANZapine 5 MG TAB PO SCH (21:00)
[2017-05-14] MEDS: ARIPiprazole 5 MG TAB PO SCH (21:01)
[2017-05-15] MEDS: LEVOTHYROXINE SODIUM 88 MCG TAB PO SCH (05:50)
[2017-05-15 06:17] VITALS: BP 122/72; PULSE 64; RESP 17; TEMP 97.4; O2SAT 100
[2017-05-15 09:30] LABS: ANION GAP 5 MEQ/L (5-15); BICARBONATE 28.3 MEQ/L (21.0-32.0); BLOOD UREA NITROGEN 12 MG/DL (7-18); CHLORIDE 103 MEQ/L (98-107); GLOMERULAR FILTRATION RATE 93 ML/MIN (>89); POTASSIUM 4.1 MEQ/L (3.5-5.1); SODIUM (NA) 136 MEQ/L (136-145)
[2017-05-15 09:32] LABS: HDL CHOLESTEROL 45.9 MG/DL (40.0-60.0); LDL CHOLESTEROL 103 MG/DL (0-99)
--- NOTE | 2017-05-15 15:32 | HHI.PYPN ---
Subjective Remarks Pt seen and discussed with staff. She has been observed responding to internal stimuli and laughing inappropriately. She is compliant with medications. No SI/ HI Objective Alert: Yes [place]: Person, Place, Date Mood: Calm Affect: Blunted Memory Intact: Immediate, Recent, Remote Hallucinations: Auditory Delusions: Yes Delusion Type: Paranoid Suicidal: Ideation (denies) Homicidal: Ideation (denies) Insight/Judgment poor Labs Test 05/15/17 08:06 Blood Urea Nitrogen 12 MG/DL Creatinine 0.70 MG/DL Random Glucose 166 MG/DL Calcium Level 9.0 MG/DL Sodium Level 136 MEQ/L Potassium Level 4.1 MEQ/L Chloride Level 103 MEQ/L Carbon Dioxide Level 28.3 MEQ/L Anion Gap 5 MEQ/L Estimat Glomerular Filtration Rate 93 ML/MIN Triglycerides Level 211 MG/DL Cholesterol Level 191 MG/DL LDL Cholesterol 103 MG/DL HDL Cholesterol 45.9 MG/DL Cholesterol/HDL Ratio 4.16 RATIO Vitals/IOs Vital Signs Date Time Temp Pulse Resp B/P (MAP) Pulse Ox O2 Delivery O2 Flow Rate FiO2 05/15/17 06:17 97.4 64 17 122/72 (89) 100 05/14/17 10:50 Room Air Assessment & Plan Problem List: (1) Schizophrenia, 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 Estimated LOS: days Justification for Cont. Inpt. psychosis Yeimi Joseph MD May 15, 2017 15:32
--- NOTE | 2017-05-15 17:41 | EKG ---
Date Performed: 05/15/2017 Time Performed: 08:11:12 PTAGE: 41 years EKG: Sinus rhythm WITH SINUS ARRHYTHMIA NORMAL ECG PREVIOUS TRACING : 05/05/2017 16.09 SINCE PREVIOUS TRACING 05/05/2017, SINUS ARRHYTHMIA IS NEW. DOCTOR: Danish Valadez Interpretating Date/Time 05/15/2017 17:40:07
[2017-05-15 18:32] VITALS: BP 143/85; PULSE 76; RESP 18; TEMP 98.4; O2SAT 96
[2017-05-15] MEDS: ARIPiprazole 5 MG TAB PO SCH (22:04)
[2017-05-15] MEDS: OLANZapine 5 MG TAB PO SCH (22:04)
[2017-05-16] MEDS: LEVOTHYROXINE SODIUM 88 MCG TAB PO SCH (05:53)
[2017-05-16 06:25] VITALS: BP 121/76; PULSE 80; RESP 18; TEMP 97.7; O2SAT 99
[2017-05-16 11:27] LABS: HEMOGLOBIN A1a 1.5 %; HEMOGLOBIN Ao 84.3 %; HEMOGLOBIN LA1C 2.2 %; HEMOGLOBIN P3 3.7 %
--- NOTE | 2017-05-16 16:12 | HHI.PYPN ---
Subjective Remarks Pt seen and discussed with staff. She has been quiet and withdrawn. She has been pacing the halls. Less internally stimulated today. No behavioral problems. Compliant with medications and tolerating without side effects. 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 Estimated LOS: days Justification for Cont. Inpt. impairments in reality testing Yeimi Joseph MD May 16, 2017 16:12
[2017-05-16 18:22] VITALS: BP 134/109; PULSE 87; RESP 18; TEMP 98.6; O2SAT 97
[2017-05-16] MEDS: OLANZapine 10 MG TAB PO SCH (21:00)
[2017-05-16] MEDS: ARIPiprazole 5 MG TAB PO SCH (21:00)
[2017-05-17 04:35] VITALS: BP 125/62; PULSE 79; RESP 16; TEMP 97.6; O2SAT 97
[2017-05-17] MEDS: LEVOTHYROXINE SODIUM 88 MCG TAB PO SCH (06:00)
[2017-05-17] MEDS ORDERED: HALOPERIDOL 5 MG TAB PO SCH (10:30)
--- NOTE | 2017-05-17 10:38 | HHI.PYPN ---
Subjective Remarks Patient was seen today for psychiatric reevaluation, she was found in her bed, laughing and talking to herself, when I asked her about the reason of her laughing, she told me that she has been talking with her family and they are telling her funny things. Patient doesn't seem to have an insight about the reason of her rehospitalization. He says that she was brought here by police, she doesn't know the reason. Patient seems to be quite disorganized, paranoid, but redirectable. She is oriented 3, no fluctuation of consciousness, attention deficit, present. She has been compliant with medications, no significant side effects. Review of Systems Other No somatic complaints Objective Alert: Yes [place]: Person, Place, Date Mood: Calm Affect: Blunted Memory Intact: Immediate, Recent, Remote Hallucinations: Auditory Delusions: Yes Delusion Type: Paranoid Suicidal: Ideation (denies) Homicidal: Ideation (denies) Insight/Judgment Poor Vitals/IOs Vital Signs Date Time Temp Pulse Resp B/P (MAP) Pulse Ox O2 Delivery O2 Flow Rate FiO2 05/17/17 04:35 97.6 79 16 125/62 (83) 97 05/14/17 10:50 Room Air Intake and Output 05/17/17 05/17/17 05/18/17 08:00 16:00 00:00 Intake Total 320 ml Balance 320 ml Assessment & Plan Problem List: (1) Schizophrenia, 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 Today patient is paranoid, internally stimulated, talking to herself, disorganized. We'll continue olanzapine 20 mg at bedtime, we will discontinue Haldol, and start Abilify illegal and daily due to increased QTC. QTC is 460. Also with the idea of using Abilify Mantena upon discharge. Assessment & Plan Estimated LOS: days Justification for Cont. Inpt. She is acutely psychotic and needs psychiatric hospitalization for stabilization. Evan Blake MD May 17, 2017 10:38
[2017-05-17] MEDS: OLANZapine 10 MG TAB PO SCH (21:00)
[2017-05-18] MEDS: LEVOTHYROXINE SODIUM 88 MCG TAB PO SCH (06:00)
[2017-05-18 06:16] VITALS: BP 134/84; PULSE 73; RESP 18; TEMP 97.9; O2SAT 97
[2017-05-18] MEDS ORDERED: ARIPiprazole 5 MG TAB PO SCH (09:00)
--- NOTE | 2017-05-18 16:23 | HHI.PYPN ---
Subjective Remarks Patient was seen today for psychiatric reevaluation, patient was found pacing in the candelario, she is cooperative, a little bit irritable guarded. Patient says that she doesn't have a reason to be hospitalized, she says that police did not offer and accurately information about her behavior. She denies that she tried to get inside the house. She says that she was just looking for an outside. Patient denies suicidal and homicidal ideation, she denies visual and auditory hallucinations. In the unit has been kind of restless, suspicious, but no agitation or aggressive behavior reported. Patient is compliant with her medications, no significant side effects reported. Patient is fully oriented 3 , no attention deficit, no fluctuation of consciousness. Review of Systems Other No somatic complaints Objective Alert: Yes [place]: Person, Place, Date Mood: Calm Affect: Blunted Memory Intact: Immediate, Recent, Remote Hallucinations: Auditory Delusions: Yes Delusion Type: Paranoid Suicidal: Ideation (denies) Homicidal: Ideation (denies) Insight/Judgment Poor Vitals/IOs Vital Signs Date Time Temp Pulse Resp B/P (MAP) Pulse Ox O2 Delivery O2 Flow Rate FiO2 05/18/17 06:16 97.9 73 18 134/84 (101) 97 05/14/17 10:50 Room Air Intake and Output 05/18/17 05/18/17 05/19/17 08:00 16:00 00:00 Intake Total 720 ml Balance 720 ml Assessment & Plan Problem List: (1) Schizophrenia, 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 Increase Abilify to 10 mg daily for psychosis. Assessment & Plan Estimated LOS: days Justification for Cont. Inpt. Patient is acutely psychotic she needs to continue psychiatric hospitalization for stabilization. Evan Blake MD May 18, 2017 16:23
[2017-05-18 17:00] VITALS: BP 142/90; PULSE 83; RESP 16; TEMP 98.1; O2SAT 98
[2017-05-18 20:22] LABS: AUTOMATED NEUTROPHIL # 4.4 TH/MM3 (1.8-7.7); BASOPHIL # 0.1 TH/MM3 (0-0.2); BASOPHIL % 1.3 % (0.0-2.0); EOSINOPHIL # 0.2 TH/MM3 (0-0.4); EOSINOPHIL % 1.7 % (0.0-4.0); HEMATOCRIT 38.9 % (35.0-46.0); HEMO FLAGS DIFF FINAL; LYMPHOCYTE # 4.4 TH/MM3 (1.0-4.8); MEAN CELL VOLUME 88.8 FL (80.0-100.0); MEAN CORPUSCULAR HEMOGLOBIN 29.3 PG (27.0-34.0); MEAN CORPUSCULAR HGB CONC 33.1 % (32.0-36.0); MONO % 6.4 % (0.0-8.0); NEUT % 45.6 % (16.0-70.0); PLATELET COUNT 274 TH/MM3 (150-450); RED BLOOD COUNT 4.38 MIL/MM3 (4.00-5.30); RED CELL DISTRIBUTION WIDTH 14.1 % (11.6-17.2); WHITE BLOOD COUNT 9.7 TH/MM3 (4.0-11.0)
[2017-05-18] MEDS: OLANZapine 10 MG TAB PO SCH (20:32)
[2017-05-19] MEDS: LEVOTHYROXINE SODIUM 88 MCG TAB PO SCH (06:00)
[2017-05-19 06:08] VITALS: BP 137/89; PULSE 88; RESP 18; TEMP 98.2; O2SAT 97
[2017-05-19] MEDS: ARIPiprazole 5 MG TAB PO SCH (09:14)
--- NOTE | 2017-05-19 15:46 | HHI.PYPN ---
Subjective Remarks Patient is seen today for psychiatric evaluation. Her case was discussed widely in treatment team. Patient today is calm and cooperative and talkative. Patient reports that she doesn't want to stay here much more, she says that she has a house, she denies that she tried to break inside the house. She says that police did not to the to. Patient denies suicidal and homicidal ideation, she denies visual and auditory hallucinations. He has a very flat affect and a mild to moderate blocking thought, but no paranoia, no prominent delusions present. He is been compliant with medications, nose and medical side effects. Review of Systems Other No somatic complaints Objective Alert: Yes [place]: Person, Place, Date Mood: Calm Affect: Blunted Memory Intact: Immediate, Recent, Remote Hallucinations: Auditory Delusions: Yes Delusion Type: Paranoid Suicidal: Ideation (denies) Homicidal: Ideation (denies) Insight/Judgment Poor Labs Test 05/18/17 19:58 White Blood Count 9.7 TH/MM3 Red Blood Count 4.38 MIL/MM3 Hemoglobin 12.9 GM/DL Hematocrit 38.9 % Mean Corpuscular Volume 88.8 FL Mean Corpuscular Hemoglobin 29.3 PG Mean Corpuscular Hemoglobin Concent 33.1 % Red Cell Distribution Width 14.1 % Platelet Count 274 TH/MM3 Mean Platelet Volume 8.5 FL Neutrophils (%) (Auto) 45.6 % Lymphocytes (%) (Auto) 45.0 % Monocytes (%) (Auto) 6.4 % Eosinophils (%) (Auto) 1.7 % Basophils (%) (Auto) 1.3 % Neutrophils # (Auto) 4.4 TH/MM3 Lymphocytes # (Auto) 4.4 TH/MM3 Monocytes # (Auto) 0.6 TH/MM3 Eosinophils # (Auto) 0.2 TH/MM3 Basophils # (Auto) 0.1 TH/MM3 CBC Comment DIFF FINAL Differential Comment Vitals/IOs Vital Signs Date Time Temp Pulse Resp B/P (MAP) Pulse Ox O2 Delivery O2 Flow Rate FiO2 05/19/17 06:08 98.2 88 18 137/89 (105) 97 Assessment & Plan Problem List: (1) Schizophrenia, 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 Patient may benefit of Depot antipsychotics. Assessment & Plan Estimated LOS: days Justification for Cont. Inpt. Patient is to continue psychiatric hospitalization for safety and stabilization. Evan Blake MD May 19, 2017 15:46
[2017-05-19 18:00] VITALS: BP 143/92; PULSE 86; RESP 18; TEMP 98.1; O2SAT 97
[2017-05-19] MEDS: OLANZapine 10 MG TAB PO SCH (20:30)
[2017-05-20 05:22] VITALS: BP 134/86; PULSE 81; RESP 16; TEMP 97.6; O2SAT 97
[2017-05-20] MEDS: LEVOTHYROXINE SODIUM 88 MCG TAB PO SCH (06:00)
[2017-05-20] MEDS: ARIPiprazole 5 MG TAB PO SCH (08:22)
--- NOTE | 2017-05-20 16:02 | HHI.PYPN ---
Subjective Remarks Patient was seen today for psychiatric reevaluation, patient is calm, cooperative, able to engage in a conversation, patient reports feeling better, she reports compliant with her medications, no significant side effects. Patient says that she feels safe in the unit, but she wants to go back home to continue with her life. I offer her Depo medication to guarantee compliance, but patient states that she is committed to continue her oral psychotropics. She denies visual and auditory hallucinations, she denies suicidal or homicidal ideation. No agitation or aggressive behavior reported. 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 Inpt. Patient has an increased risk to decompensate at a lower level of care. Continue current psychotropics. Evan Blake MD May 20, 2017 16:02
[2017-05-20 17:59] VITALS: PULSE 94; RESP 18; TEMP 97.6; O2SAT 97
[2017-05-20 20:08] VITALS: PULSE 94; RESP 18; TEMP 97.6; O2SAT 97
[2017-05-20 20:13] VITALS: BP 147/86; PULSE 76; RESP 18; TEMP 97.6; O2SAT 97
[2017-05-20] MEDS: OLANZapine 10 MG TAB PO SCH (21:00)
[2017-05-21] MEDS: LEVOTHYROXINE SODIUM 88 MCG TAB PO SCH (06:00)
[2017-05-21 06:05] VITALS: BP 139/78; PULSE 73; RESP 16; TEMP 97.9; O2SAT 98
[2017-05-21] MEDS: ARIPiprazole 5 MG TAB PO SCH (08:05)
[2017-05-21] MEDS ORDERED: SYNT88TA PO (10:42)
[2017-05-21] MEDS ORDERED: ARIP1TAB11 PO (10:42)
[2017-05-21] MEDS ORDERED: OLAN10TA PO (10:42)
--- NOTE | 2017-05-21 10:49 | HHI.DS ---
Psychiatry Discharge Summary Inpatient Psychiatric care?: Yes Advance Directive: No Reason Not Provided: refused Mental Health AdvanceDirective: No Health Care Proxy: No Admission Admission Date May 14, 2017 at 12:52 Admission Diagnosis: (1) Schizophrenia ICD Code: F20.9 - Schizophrenia, unspecified Brief History 41-year-old female brought in under a Barber act by law enforcement. Apparently the patient was discharged from psychiatry yesterday and aim back on the same day after being picked up by police. She was apparently attempting to break into a home that she indicated belonged to her grandfather. However, the home did not belong to the grandfather and the patient was felt to be burglarizing the home in a psychotic state. Law enforcement noticed that her behavior and verbal content were bizarre and incomprehensible. At the present time, the patient is alert and oriented to person and place. She is a poor historian and does not understand why she is here. She remains unable to care for herself and is felt to be at great risk for self neglect. She is disorganized, easily confused and demonstrating loose associations. Tobacco Use In Past 30 Days: Refused To Answer Alcohol Use: Never Hospital Course She was admitted in the psychiatric floor due to psychotic decompensation. Psychosocial and psychiatric assessments were performed. Safety measures were taken. Patient was initiated in Abililfy and olanzapine, individual and group therapy. At the beginning the patient was very paranoid, selectively mute, reluctant to provide information about herself, very guarded and disorganized. With the days she showed up very appropriate and good response to psychotropics and therapies. Patient became a baseline with Abilify 10 mg and olanzapine 20 mg daily. During visualization patient was not agitated or aggressive, history is restless and pacing in the candelario very often, but usually redirectable. At the moment of discharge patient is irritable at baseline, doesn't have any visible psychotic symptom, she denies suicidal and homicidal ideation, she denies visual and auditory hallucinations. Results Blood Pressure 139 / 78 Vital Signs Date Time Temp Pulse Resp B/P (MAP) Pulse Ox O2 Delivery O2 Flow Rate FiO2 05/21/17 06:05 97.9 73 16 139/78 (98) 98 Laboratory Tests Test 05/18/17 19:58 Lymphocytes (%) (Auto) 45.0 % (9.0-44.0) Laboratory Results Test 05/15/17 08:06 Cholesterol Level 191 MG/DL (120-200) HDL Cholesterol 45.9 MG/DL (40.0-60.0) Hemoglobin A1c 5.9 % (4.3-6.0) LDL Cholesterol 103 MG/DL (0-99) Triglycerides Level 211 MG/DL (42-150) Summary of Procedures No procedures done Pending results at discharge: No Medications # of Antipsychotic meds at D/C: 2 Approp Antipsych med options 1 - Minimum of three failed multiple trials of monotherapy. 2 - Documented plan to taper to monotherapy due to previous use of multiple meds OR cross-taper in progress at D/C. 3 - Documentation of augmentation of Clozapine. 4 - Justification other than those listed in allowable values 1-3, document here : Discharge Discharge Date: May 21, 2017 Discharge Diagnosis: (1) Schizophrenia ICD Code: F20.9 - Schizophrenia, unspecified Mental Status Exam at Disch woman, age appearing, disheveled, overweight, hospital [facility], calm, cooperative, speech is fluent and spontaneous, mood is okay, affect is euthymic. Thought process is logical, coherent and goal-directed. Thought content is devoid of suicidal ideation, homicidal ideation, visual and auditory hallucinations. No paranoia, no disorganization, no delusions. Insight, impulse control, judgment are fair. Cognition seems to be intact. Pt Condition on Discharge: Stable Discharge Disposition: Discharge Home Discharge Instructions Diet Instructions: Heart Healthy Diet Activities you can perform: Weight Bearing as Princess Scheduled Appointment: Dr. Gant Appointment Date: May 24, 2017 Appointment Time: 10:00am Discharge Time > 30 minutes Discharge/Advance Care Plan Health Problems: (1) Schizophrenia, disorganized type Goals to promote your health * To prevent worsening of your condition and complications * To maintain your health at the optimal level Directions to meet your goals Take your medications as prescribed Follow your dietary instruction Follow activity as directed Keep your appointments as scheduled Take your immunizations and boosters as scheduled If your symptoms worsen call your PCP, if no PCP go to Urgent Care Center or Emergency Room For 15/03 questions related to your inpatient stay or results of tests pending at discharge, please contact Dr. Evan Blake at Smoking is Dangerous to Your Health. Avoid second hand smoking Problem Qualifiers (1) Schizophrenia: Qualified Codes: F20.0 - Paranoid schizophrenia Evan Blake MD May 21, 2017 10:49
== END 2017-05-21 13:30 | disposition home or self-care (01) | DRG 885 ==
LOC: NEPD 20:54 → NEDA 05-14 12:52 → H270 05-14 15:25 → H260 05-14 18:33
PROVIDERS: ADMIT Psychiatry & Neurology Psychiatry; ATTEND Psychiatry & Neurology Psychiatry
DX: F20.1 Disorganized schizophrenia (principal)
CPT/HCPCS: 80048; 80053; 80061; 80307; 83036; 84703; 85025; 93005